=== PATIENT | male | born 1935 | race Caucasian/White ===

== ENCOUNTER → 2019-04-06 07:24 | Outpatient (CLI) | payer MEDICARE, BC, SELFPAY ==
[2019-04-06 08:47] LABS: Add Manual Diff / Slide Review NO; Basophils Absolute Auto 0 /uL (0-100); Basophils Percent Auto 0.6 % (0-2); Eosinophils Absolute Auto 300 /uL (0-450); Eosinophils Percent Auto 4.6 % (2-4); Hematocrit 49.1 % (41-53); Hemoglobin 16.6 g/dL (13.5-17.5); Lymphocytes Absolute Auto 1200 /uL (1100-4500); Lymphocytes Percent Auto 19.2 % (25-40); Mean Corpuscular HGB Conc 33.9 % (30-36); Mean Corpuscular Hemoglobin 33.5 PG (26-34); Mean Corpuscular Volume 98.8 fL (80-100); Monocytes Absolute Auto 600 /uL (0-900); Monocytes Percent Auto 10.1 % (3-14); Neutrophils Absolute Auto 4200 /uL (1500-7000); Neutrophils Percent Auto 65.5 % (50-75); Platelet Count 131 X10^3/uL (150-400); Red Blood Cell Count 4.97 X10^6/uL (4.5-5.9); Red Cell Distribution Width 13.4 % (11.6-14.8); White Blood Cell Count 6.4 X10^3/uL (4.5-11.0)
[2019-04-06 08:58] LABS: Alanine Aminotransferase 70 IU/L (21-72); Albumin 4.2 g/dL (3.5-5.0); Albumin Globulin Ratio 1.2 (1.0-2.8); Alkaline Phosphatase 111 U/L (38-126); Aspartate Aminotransferase 40 IU/L (17-59); BUN Creatinine Ratio 19.1 (6-22); Bilirubin Total 1.2 mg/dL (0.2-1.3); Blood Urea Nitrogen 21 mg/dL (9-20); Calcium 9.2 mg/dL (8.4-10.2); Carbon Dioxide 23 mmol/L (22-32); Chloride 106 mmol/L (98-107); Cholesterol 142 mg/dL (140-199); Estimated Glomerular Filt Rate > 60.0 mL/min (>60); Globulin 3.5 g/dL (1.7-4.1); Glucose 98 mg/dL (80-110); HDL Cholesterol 36 mg/dL (40-60); HEMOLYSIS < 15 (0-50); LDL Cholesterol Calculated 85 mg/dL (<100); Potassium 4.1 mmol/L (3.4-5.1); Sodium 139 mmol/L (137-145); Total Protein 7.7 g/dL (6.3-8.2); Triglycerides 103 mg/dL (35-150)
[2019-04-06 09:24] LABS: Thyroid Stimulating Hormone 1.83 uIU/mL (0.47-4.68)
== END ==
PROVIDERS: Family Provider Internal Medicine Interventional Cardiology; PCP Family Medicine; Visit Provider Family Medicine
DX: E78.2 Mixed hyperlipidemia (principal); I10 Essential (primary) hypertension
CPT/HCPCS: 36415; 80053; 80061; 84443; 85025

== ENCOUNTER 2019-05-21 19:02 | Emergency (ER) | payer MEDICARE, OTHER, SELFPAY ==
[2019-05-21 19:12] VITALS: BP 199/91; PULSE 88; RESP 17; TEMP 36.6; O2SAT 96
--- NOTE | 2019-05-21 19:22 | ED.WEAKNESS ---
HPI - Weakness <Paola Yang PA-C - Last Filed: 05/21/19 21:09> General Chief complaint: Weakness Stated complaint: states high bp Time Seen by Provider: 05/21/19 19:03 Source: patient and family Mode of arrival: Ambulatory Limitations: no limitations History of Present Illness HPI Narrative: This 83-year-old male comes to ED secondary to feeling poorly and noting elevated blood pressure on his home monitor, in the 190s range systolic. He states that he was feeling okay earlier today. This evening sat down to have hot dogs and bread for dinner, felt warm after he started eating and throughout the rest of his dinner (he throughout most of it but did drink a milkshake that his brought home). He states he felt some mild nausea and noted his heart rate seemed somewhat high at 91. He states with that he felt somewhat short of breath for maybe 10-15 minutes. He states that he had a little nausea, no vomiting. He denies having any chest pain. He denies any new pain or swelling in his extremities. He states following this, he had an episode of diarrhea and has not had any subsequently. He states that now he just feels kind of weak in general, denies any focal weakness, however with these symptoms and seeing elevated blood pressure, thought he should come in. He states that he does not frequently check blood pressure at home unless he is not feeling well, however typically 130s range which he thinks it was recently at his doctor's appointment. He has not taken BP medicines today as he takes them at night. He does have history of coronary disease as well as mitral valve replacement. His did not noted any weakness or changes in his speech. Related Data Home Medications Medication Instructions Recorded Confirmed aspirin 81 mg PO QDAY #0 09/20/17 05/21/19 finasteride 5 mg PO QDAY #0 09/20/17 05/21/19 tamsulosin [Flomax] 0.4 mg PO QDAY #0 09/20/17 05/21/19 Previous Rx's Medication Instructions Recorded atorvastatin 20 mg tablet 20 mg PO SEE INSTRUCTIONS #30 tab 04/09/19 lisinopril 20 mg tablet 20 mg PO QDAY #30 tab 04/09/19 metoprolol succinate 25 mg 25 mg PO QDAY #90 tab 04/09/19 tablet,extended release 24 hr pantoprazole 40 mg tablet,delayed 40 mg PO QDAY #30 tab 04/09/19 release Allergies Allergy/AdvReac Type Severity Reaction Status Date / Time No Known Drug Allergies Allergy Verified 05/21/19 19:17 Review of Systems <Paola Yang PA-C - Last Filed: 05/21/19 21:09> Review of Systems ROS Unobtainable: All systems reviewed & are unremarkable except as noted in HPI and below Patient History <Paola Yang PA-C - Last Filed: 05/21/19 21:09> Medical History BPH (benign prostatic hyperplasia) (Acute) Essential hypertension (07/14/04) Mixed hyperlipidemia (12/15/02) 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 HEENT: PERRL, EOMI, normal oropharynx NECK: Supple LUNGS: Clear to auscultation bilaterally, no cough on exam. HEART: Rate and rhythm regular, II/ systolic murmur heard best at the left upper sternal border, normal S1 and S2, no S3 or S4. ABDOMEN: Soft, nontender, nondistended, bowel sounds present x 4 quadrants, no masses palpable, no hepatosplenomegaly. EXTREMITIES: Trace symmetric pitting, no calf tenderness DERMATOLOGIC: No jaundice or exanthem NEUROLOGIC: Alert and oriented with normal speech and coordination. Ambulates normally to the restroom Initial Vital Signs Initial Vital Signs: Vital Signs Temperature 97.8 F 05/21/19 19:12 Pulse Rate 88 05/21/19 19:12 Respiratory Rate 17 05/21/19 19:12 Blood Pressure 199/91 H 05/21/19 19:12 Pulse Oximetry 96 05/21/19 19:12 <Fermin Kumar DO - Last Filed: 05/21/19 23:22> Initial Vital Signs Initial Vital Signs: Vital Signs Temperature 97.8 F 05/21/19 19:12 Pulse Rate 88 05/21/19 19:12 Respiratory Rate 17 05/21/19 19:12 Blood Pressure 199/91 H 05/21/19 19:12 Pulse Oximetry 96 05/21/19 19:12 Course <Paola Yang PA-C - Last Filed: 05/21/19 21:09> Course Additional Information: Blood pressure improved while patient was here prior to being given medications. He has had some mild generalized weakness, no chest pain. He had some faster, regular heart rate and sensation of dyspnea/air hunger for a short time which had resolved well prior to arrival. Symptoms were associated with some nausea and an episode of diarrhea, started while eating. Thus far patient appears comfortable, lab work and studies negative for any acute findings. Plan to repeat troponin at 9:15 which will be 3 hours after symptoms started. Dr. Kumar will review findings and discharge patient if appropriate (findings reviewed) Orders Ordered: ED Orders 05/21/19 19:09 Complete Blood Count AUTO DIFF Stat Comprehensive Metabolic Panel Stat Lipase Stat Magnesium Stat Partial Thromboplastin Time Stat Prothrombin Time INR Stat Troponin & CK Cardiac Panel Stat 05/21/19 19:14 EKG-12 Lead Stat 05/21/19 19:23 XR chest 1V Stat 05/21/19 21:15 Troponin I Stat Discontinued Medications Aspirin (Aspirin Ec) 81 mg PO NOW ONE Stop: 05/21/19 20:30 Last Admin: 05/21/19 20:34 Dose: 81 mg Documented by: MALAFARL Lisinopril (Zestril) 20 mg PO NOW ONE Stop: 05/21/19 20:24 Last Admin: 05/21/19 20:34 Dose: 20 mg Documented by: VIANEY Metoprolol Succinate (Toprol Xl) 25 mg PO NOW ONE Stop: 05/21/19 20:24 Last Admin: 05/21/19 20:34 Dose: 25 mg Documented by: VIANEY Vital Signs Vital signs: Vital Signs - 8 hr 05/21/19 19:12 05/21/19 20:39 05/21/19 21:00 Temperature 97.8 F Pulse Rate 88 78 67 Respiratory Rate 17 21 18 Blood Pressure 199/91 H Blood Pressure [Right Arm] 167/78 H 165/82 H Pulse Oximetry 96 96 96 05/21/19 21:32 05/21/19 22:05 05/21/19 22:06 Temperature Pulse Rate 69 93 H 72 Respiratory Rate 15 22 Blood Pressure 162/84 H 162/76 H Blood Pressure [Right Arm] 157/83 H Pulse Oximetry 95 97 <Fermin Kumar DO - Last Filed: 05/21/19 23:22> Orders Ordered: ED Orders 05/21/19 19:09 Complete Blood Count AUTO DIFF Stat Comprehensive Metabolic Panel Stat Lipase Stat Magnesium Stat Partial Thromboplastin Time Stat Prothrombin Time INR Stat Troponin & CK Cardiac Panel Stat 05/21/19 19:14 EKG-12 Lead Stat 05/21/19 19:23 XR chest 1V Stat 05/21/19 21:15 Troponin I Stat Discontinued Medications Aspirin (Aspirin Ec) 81 mg PO NOW ONE Stop: 05/21/19 20:30 Last Admin: 05/21/19 20:34 Dose: 81 mg Documented by: VIANEY Lisinopril (Zestril) 20 mg PO NOW ONE Stop: 05/21/19 20:24 Last Admin: 05/21/19 20:34 Dose: 20 mg Documented by: VIANEY Metoprolol Succinate (Toprol Xl) 25 mg PO NOW ONE Stop: 05/21/19 20:24 Last Admin: 05/21/19 20:34 Dose: 25 mg Documented by: VIANEY Vital Signs Vital signs: Vital Signs - 8 hr 05/21/19 19:12 05/21/19 20:39 05/21/19 21:00 Temperature 97.8 F Pulse Rate 88 78 67 Respiratory Rate 17 21 18 Blood Pressure 199/91 H Blood Pressure [Right Arm] 167/78 H 165/82 H Pulse Oximetry 96 96 96 05/21/19 21:32 05/21/19 22:05 05/21/19 22:06 Temperature Pulse Rate 69 93 H 72 Respiratory Rate 15 22 Blood Pressure 162/84 H 162/76 H Blood Pressure [Right Arm] 157/83 H Pulse Oximetry 95 97 [facility] - Weakness <Paola Yang PA-C - Last Filed: 05/21/19 21:09> Lab Data Attestation: I reviewed the patient's lab results. Result diagrams: 05/21/19 19:09 05/21/19 19:09 Labs: Lab Results 05/21/19 05/21/19 05/21/19 Range/Units 19:09 19:09 19:09 WBC 7.7 (4.5-11.0) X10^3/uL RBC 4.93 (4.5-5.9) X10^6/uL Hgb 16.7 (13.5-17.5) g/dL Hct 48.3 (41-53) % MCV 97.8 (80-100) fL MCH 33.9 (26-34) PG MCHC 34.6 (30-36) % RDW 13.6 (11.6-14.8) % Plt Count 143 L (150-400) X10^3/uL Neut % (Auto) 59.3 (50-75) % Lymph % (Auto) 25.0 (25-40) % Patrick % (Auto) 10.4 (3-14) % Eos % (Auto) 4.4 H (2-4) % Baso % (Auto) 0.9 (0-2) % Neut # (Auto) 4500 (4213-6128) /uL Lymph # (Auto) 1900 (8289-1362) /uL Patrick # (Auto) 800 (0-900) /uL Eos # (Auto) 300 (0-450) /uL Baso # (Auto) 100 (0-100) /uL PT 12.4 (10.1-12.7) SECONDS INR 1.1 (0.9-1.3) APTT 33 (26.4-36.2) SECONDS Sodium 140 (137-145) mmol/L Potassium 3.8 (3.4-5.1) mmol/L Chloride 105 (98-107) mmol/L Carbon Dioxide 26 (22-32) mmol/L BUN 20 (9-20) mg/dL Creatinine 1.20 (0.66-1.25) mg/dL Estimated GFR 57.8 L (>60) mL/min BUN/Creatinine Ratio 16.7 (6-22) Glucose 81 (80-110) mg/dL Calcium 9.5 (8.4-10.2) mg/dL Magnesium (1.6-2.3) mg/dL Total Bilirubin 0.6 (0.2-1.3) mg/dL AST 33 (17-59) IU/L ALT 21 (<50) IU/L Alkaline Phosphatase 95 (38-126) U/L Total Creatine Kinase 140 (55-170) U/L CK-MB (CK-2) 5.24 H (<2.37) ng/mL CK-MB (CK-2) Rel Index 3.7 (1.5-5.0) % Troponin I < 0.012 (0.01-0.034) ng/mL Total Protein 7.7 (6.3-8.2) g/dL Albumin 4.4 (3.5-5.0) g/dL Globulin 3.3 (1.7-4.1) g/dL Albumin/Globulin Ratio 1.3 (1.0-2.8) Lipase (23-300) U/L 05/21/19 05/21/19 Range/Units 19:09 21:15 WBC (4.5-11.0) X10^3/uL RBC (4.5-5.9) X10^6/uL Hgb (13.5-17.5) g/dL Hct (41-53) % MCV (80-100) fL MCH (26-34) PG MCHC (30-36) % RDW (11.6-14.8) % Plt Count (150-400) X10^3/uL Neut % (Auto) (50-75) % Lymph % (Auto) (25-40) % Patrick % (Auto) (3-14) % Eos % (Auto) (2-4) % Baso % (Auto) (0-2) % Neut # (Auto) (4920-3039) /uL Lymph # (Auto) (2487-6207) /uL Patrick # (Auto) (0-900) /uL Eos # (Auto) (0-450) /uL Baso # (Auto) (0-100) /uL PT (10.1-12.7) SECONDS INR (0.9-1.3) APTT (26.4-36.2) SECONDS Sodium (137-145) mmol/L Potassium (3.4-5.1) mmol/L Chloride (98-107) mmol/L Carbon Dioxide (22-32) mmol/L BUN (9-20) mg/dL Creatinine (0.66-1.25) mg/dL Estimated GFR (>60) mL/min BUN/Creatinine Ratio (6-22) Glucose (80-110) mg/dL Calcium (8.4-10.2) mg/dL Magnesium 1.8 (1.6-2.3) mg/dL Total Bilirubin (0.2-1.3) mg/dL AST (17-59) IU/L ALT (<50) IU/L Alkaline Phosphatase (38-126) U/L Total Creatine Kinase (55-170) U/L CK-MB (CK-2) (<2.37) ng/mL CK-MB (CK-2) Rel Index (1.5-5.0) % Troponin I 0.013 (0.01-0.034) ng/mL Total Protein (6.3-8.2) g/dL Albumin (3.5-5.0) g/dL Globulin (1.7-4.1) g/dL Albumin/Globulin Ratio (1.0-2.8) Lipase 94 (23-300) U/L Urine Dip Bedside Urine Glucose Negative Bedside Urine Bilirubin - Negative Bedside Urine Ketone - Negative Urine Specific [place] 1.015 Bedside Urine Occult Blood - Negative Bedside Urine pH 6.0 Bedside Urine Protein - Negative Bedside Urine Urobilinogen - Negative Bedside Urine Nitrite - Negative Bedside Urine Leukocytes - Negative Esterase Imaging Data Chest x-ray: Radiologist's impression: [address] [address] XRay Report Signed Patient: Venkat Hernandez EMR#: [id number] : 6Acct:[id number] Age/Sex: 83 / MDate of Service: 05/21/19 Loc: ED Accession Number: [id number] Procedure: XR chest 1V Ordering Provider: Paola Yang P.A-C PROCEDURE: XR CHEST 1V INDICATIONS: chest pain TECHNIQUE: One view of the chest was acquired. COMPARISON: [facility], , CHEST 2 VIEW, 07/24/2010, 15:09. FINDINGS: Surgical changes and devices: Sternotomy wires, presumed prior CABG or cardiac valve replacement. Lungs and pleura: Lungs are abnormal with a chronic interstitial prominence, perhaps reflecting prior smoking history. No pleural effusions or pneumothorax but there is focal pleural thickening at the lateral left lung base, potentially a manifestation of a pleural mass in that area, measuring only approximately 2.5 cm craniocaudad and 1.5 cm in width. This was not previously present on chest plain film imaging from 2010.. Mediastinum: Mediastinal contours appear normal except for what appears to be a moderate-sized hiatal hernia behind the heart. Heart size is at the upper limits of normal. Bones and chest wall: No suspicious bony lesions. Overlying soft tissues appear unremarkable. IMPRESSION: Prior CABG or cardiac valve replacement. Possible pleural mass lateral left lung base. Followup PA and lateral chest plain film with specific attention to this area is recommended in several days when deep inspiratory effort is possible. Interstitial prominence, suspect prior smoking history. Moderate-sized hiatal hernia behind the heart. Heart size at upper limits of normal but not indicating definite CHF. Dictated by: Hank Fair M.D. on 05/21/2019 at 20:55 Approved by: Hank Fair M.D. on 05/21/2019 at 20:57 ECG Data Attestation: I personally reviewed and interpreted this ECG as follows: (Normal sinus rhythm, rate 84, no acute ST changes compared to 2010, borderline LAD) Prior ECG tracings: available for review <Fermin Kumar DO - Last Filed: 05/21/19 23:22> Lab Data Attestation: I reviewed the patient's lab results. Labs: Lab Results 05/21/19 05/21/19 05/21/19 Range/Units 19:09 19:09 19:09 WBC 7.7 (4.5-11.0) X10^3/uL RBC 4.93 (4.5-5.9) X10^6/uL Hgb 16.7 (13.5-17.5) g/dL Hct 48.3 (41-53) % MCV 97.8 (80-100) fL MCH 33.9 (26-34) PG MCHC 34.6 (30-36) % RDW 13.6 (11.6-14.8) % Plt Count 143 L (150-400) X10^3/uL Neut % (Auto) 59.3 (50-75) % Lymph % (Auto) 25.0 (25-40) % Patrick % (Auto) 10.4 (3-14) % Eos % (Auto) 4.4 H (2-4) % Baso % (Auto) 0.9 (0-2) % Neut # (Auto) 4500 (6286-4785) /uL Lymph # (Auto) 1900 (9330-6239) /uL Patrick # (Auto) 800 (0-900) /uL Eos # (Auto) 300 (0-450) /uL Baso # (Auto) 100 (0-100) /uL PT 12.4 (10.1-12.7) SECONDS INR 1.1 (0.9-1.3) APTT 33 (26.4-36.2) SECONDS Sodium 140 (137-145) mmol/L Potassium 3.8 (3.4-5.1) mmol/L Chloride 105 (98-107) mmol/L Carbon Dioxide 26 (22-32) mmol/L BUN 20 (9-20) mg/dL Creatinine 1.20 (0.66-1.25) mg/dL Estimated GFR 57.8 L (>60) mL/min BUN/Creatinine Ratio 16.7 (6-22) Glucose 81 (80-110) mg/dL Calcium 9.5 (8.4-10.2) mg/dL Magnesium (1.6-2.3) mg/dL Total Bilirubin 0.6 (0.2-1.3) mg/dL AST 33 (17-59) IU/L ALT 21 (<50) IU/L Alkaline Phosphatase 95 (38-126) U/L Total Creatine Kinase 140 (55-170) U/L CK-MB (CK-2) 5.24 H (<2.37) ng/mL CK-MB (CK-2) Rel Index 3.7 (1.5-5.0) % Troponin I < 0.012 (0.01-0.034) ng/mL Total Protein 7.7 (6.3-8.2) g/dL Albumin 4.4 (3.5-5.0) g/dL Globulin 3.3 (1.7-4.1) g/dL Albumin/Globulin Ratio 1.3 (1.0-2.8) Lipase (23-300) U/L 05/21/19 05/21/19 Range/Units 19:09 21:15 WBC (4.5-11.0) X10^3/uL RBC (4.5-5.9) X10^6/uL Hgb (13.5-17.5) g/dL Hct (41-53) % MCV (80-100) fL MCH (26-34) PG MCHC (30-36) % RDW (11.6-14.8) % Plt Count (150-400) X10^3/uL Neut % (Auto) (50-75) % Lymph % (Auto) (25-40) % Patrick % (Auto) (3-14) % Eos % (Auto) (2-4) % Baso % (Auto) (0-2) % Neut # (Auto) (5926-4285) /uL Lymph # (Auto) (6932-6257) /uL Patrick # (Auto) (0-900) /uL Eos # (Auto) (0-450) /uL Baso # (Auto) (0-100) /uL PT (10.1-12.7) SECONDS INR (0.9-1.3) APTT (26.4-36.2) SECONDS Sodium (137-145) mmol/L Potassium (3.4-5.1) mmol/L Chloride (98-107) mmol/L Carbon Dioxide (22-32) mmol/L BUN (9-20) mg/dL Creatinine (0.66-1.25) mg/dL Estimated GFR (>60) mL/min BUN/Creatinine Ratio (6-22) Glucose (80-110) mg/dL Calcium (8.4-10.2) mg/dL Magnesium 1.8 (1.6-2.3) mg/dL Total Bilirubin (0.2-1.3) mg/dL AST (17-59) IU/L ALT (<50) IU/L Alkaline Phosphatase (38-126) U/L Total Creatine Kinase (55-170) U/L CK-MB (CK-2) (<2.37) ng/mL CK-MB (CK-2) Rel Index (1.5-5.0) % Troponin I 0.013 (0.01-0.034) ng/mL Total Protein (6.3-8.2) g/dL Albumin (3.5-5.0) g/dL Globulin (1.7-4.1) g/dL Albumin/Globulin Ratio (1.0-2.8) Lipase 94 (23-300) U/L Urine Dip Bedside Urine Glucose Negative Bedside Urine Bilirubin - Negative Bedside Urine Ketone - Negative Urine Specific [place] 1.015 Bedside Urine Occult Blood - Negative Bedside Urine pH 6.0 Bedside Urine Protein - Negative Bedside Urine Urobilinogen - Negative Bedside Urine Nitrite - Negative Bedside Urine Leukocytes - Negative Esterase Imaging Data Chest x-ray: Radiologist's impression: [address] [address] XRay Report Signed Patient: Venkat Hernandez EMR#: [id number] : 6Acct:[id number] Age/Sex: 83 / MDate of Service: 05/21/19 Loc: ED Accession Number: [id number] Procedure: XR chest 1V Ordering Provider: Paola Yang P.A-C PROCEDURE: XR CHEST 1V INDICATIONS: chest pain TECHNIQUE: One view of the chest was acquired. COMPARISON: [facility], , CHEST 2 VIEW, 07/24/2010, 15:09. FINDINGS: Surgical changes and devices: Sternotomy wires, presumed prior CABG or cardiac valve replacement. Lungs and pleura: Lungs are abnormal with a chronic interstitial prominence, perhaps reflecting prior smoking history. No pleural effusions or pneumothorax but there is focal pleural thickening at the lateral left lung base, potentially a manifestation of a pleural mass in that area, measuring only approximately 2.5 cm craniocaudad and 1.5 cm in width. This was not previously present on chest plain film imaging from 2010.. Mediastinum: Mediastinal contours appear normal except for what appears to be a moderate-sized hiatal hernia behind the heart. Heart size is at the upper limits of normal. Bones and chest wall: No suspicious bony lesions. Overlying soft tissues appear unremarkable. IMPRESSION: Prior CABG or cardiac valve replacement. Possible pleural mass lateral left lung base. Followup PA and lateral chest plain film with specific attention to this area is recommended in several days when deep inspiratory effort is possible. Interstitial prominence, suspect prior smoking history. Moderate-sized hiatal hernia behind the heart. Heart size at upper limits of normal but not indicating definite CHF. Dictated by: Hank Fair M.D. on 05/21/2019 at 20:55 Approved by: Hank Fair M.D. on 05/21/2019 at 20:57 [facility] Narrative Medical decision making narrative: Received turned over from day provider. Patient's blood pressure improved after received his night medications. Second troponin was negative. Patient never to had any chest pain. He states that he feels ?normal? now. I did discuss with him the findings on his chest x-ray. His is at bedside for these discussions. Informed him that he should talk with his primary provider regarding this. Feel like we can hold on further workup for now. Symptoms not consistent with ACS. Not consistent with other cardiac etiology. Informed patient of return precautions and follow-up instructions. He expressed understanding and agreement plan. Discharge Plan Departure Patient Disposition: Home Clinical Impression: Hypertension Discharge Date/Time: 05/21/19 22:08 Instructions: Essential Hypertension Activity Restrictions/Additional Instructions: I recommend that you continue all of your medications as directed. Tomorrow contact your primary provider for follow-up to discuss the symptoms that brought you into the emergency department today and also the findings on the chest x-ray today. Return to the emergency department for any new or worsening symptoms Prescriptions: No Action atorvastatin [Lipitor] 20 mg tablet 20 mg PO SEE INSTRUCTIONS Qty: 30 RF: 11 lisinopril [Prinivil] 20 mg tablet 20 mg PO QDAY Qty: 30 RF: 11 metoprolol succinate [Toprol XL] 25 mg tablet extended release 24 hr 25 mg PO QDAY Qty: 90 RF: 3 pantoprazole [Protonix] 40 mg tablet,delayed release (DR/EC) 40 mg PO QDAY Qty: 30 RF: 11 aspirin 81 MG tablet,delayed release (DR/EC) 81 mg PO QDAY Qty: 0 RF: 0 tamsulosin [Flomax] 0.4 MG capsule,extended release 24hr 0.4 mg PO QDAY Qty: 0 RF: 0 finasteride 5 MG tablet 5 mg PO QDAY Qty: 0 RF: 0 Referrals: Gavin Jiang MD [Primary Care Provider] -
[2019-05-21 19:30] LABS: Add Manual Diff / Slide Review NO; Basophils Absolute Auto 100 /uL (0-100); Basophils Percent Auto 0.9 % (0-2); Eosinophils Absolute Auto 300 /uL (0-450); Eosinophils Percent Auto 4.4 % (2-4); Hematocrit 48.3 % (41-53); Hemoglobin 16.7 g/dL (13.5-17.5); Lymphocytes Absolute Auto 1900 /uL (1100-4500); Mean Corpuscular HGB Conc 34.6 % (30-36); Mean Corpuscular Hemoglobin 33.9 PG (26-34); Mean Corpuscular Volume 97.8 fL (80-100); Monocytes Absolute Auto 800 /uL (0-900); Monocytes Percent Auto 10.4 % (3-14); Neutrophils Absolute Auto 4500 /uL (1500-7000); Neutrophils Percent Auto 59.3 % (50-75); Platelet Count 143 X10^3/uL (150-400); Red Blood Cell Count 4.93 X10^6/uL (4.5-5.9); Red Cell Distribution Width 13.6 % (11.6-14.8); White Blood Cell Count 7.7 X10^3/uL (4.5-11.0)
[2019-05-21 19:34] LABS: INR 1.1 (0.9-1.3); Prothrombin Time 12.4 SECONDS (10.1-12.7)
[2019-05-21 19:37] LABS: PTT Partial Thromboplastin Tim 33 SECONDS (26.4-36.2)
[2019-05-21 19:40] LABS: Alanine Aminotransferase 21 IU/L (<50); Albumin 4.4 g/dL (3.5-5.0); Albumin Globulin Ratio 1.3 (1.0-2.8); Alkaline Phosphatase 95 U/L (38-126); Aspartate Aminotransferase 33 IU/L (17-59); BUN Creatinine Ratio 16.7 (6-22); Bilirubin Total 0.6 mg/dL (0.2-1.3); Blood Urea Nitrogen 20 mg/dL (9-20); Calcium 9.5 mg/dL (8.4-10.2); Carbon Dioxide 26 mmol/L (22-32); Chloride 105 mmol/L (98-107); Creatine Kinase 140 U/L (55-170); Estimated Glomerular Filt Rate 57.8 mL/min (>60); Globulin 3.3 g/dL (1.7-4.1); Glucose 81 mg/dL (80-110); Potassium 3.8 mmol/L (3.4-5.1); Sodium 140 mmol/L (137-145); Total Protein 7.7 g/dL (6.3-8.2)
[2019-05-21 19:52] LABS: Troponin I < 0.012 ng/mL (0.01-0.034)
[2019-05-21 19:55] LABS: CKMB % Relative Index 3.7 % (1.5-5.0); Creatine Kinase MB 5.24 ng/mL (<2.37); HEMOLYSIS 63 (0-50)
[2019-05-21 19:56] LABS: Lipase 94 U/L (23-300); Magnesium 1.8 mg/dL (1.6-2.3)
[2019-05-21] MEDS: METOPROLOL ER 25 MG TABLET PO (20:34)
[2019-05-21] MEDS: LISINOPRIL 20 MG TABLET PO (20:34)
[2019-05-21] MEDS: ASPIRIN EC 81 MG TABLET PO (20:34)
[2019-05-21 20:39] VITALS: BP 167/78; PULSE 78; RESP 21; O2SAT 96
[2019-05-21 21:00] VITALS: BP 165/82; PULSE 67; RESP 18; O2SAT 96
--- NOTE | 2019-05-21 21:29 | PC.NURSE ---
Patient states generalized weakness that began this evening, felt warm and had an episode of loose stool. Pt checked his BP, it was high at >200 systolic and came to ED. Denies chest pain. Had not taken his evening BP of lisinopril and metoprolol before arriving to ED. States a history of CABG >5 years ago and TAVR in 2014. at bedside.
[2019-05-21 21:32] VITALS: BP 157/83; PULSE 69; RESP 15; O2SAT 95
[2019-05-21 21:51] LABS: Troponin I 0.013 ng/mL (0.01-0.034)
[2019-05-21 22:05] VITALS: BP 162/84; PULSE 93
[2019-05-21 22:06] VITALS: BP 162/76; PULSE 72; RESP 22; O2SAT 97
== END 2019-05-21 22:08 | disposition home or self-care (01) ==
PROVIDERS: Emergency Provider Internal Medicine; Family Provider Internal Medicine Interventional Cardiology; PCP Family Medicine
DX: I10 Essential (primary) hypertension (principal); R07.9 Chest pain, unspecified; E78.2 Mixed hyperlipidemia
CPT/HCPCS: 36415; 71045; 80053; 81003; 82550; 82553; 83690; 83735; 84484; 85025; 85610; 85730; 93005; 99283; 99285

== ENCOUNTER → 2019-06-02 09:50 | Outpatient (CLI) | payer MEDICARE, OTHER, SELFPAY ==
--- NOTE | 2019-06-02 09:52 | DI.RAD.S_ITS ---
PROCEDURE: XR CHEST 2V INDICATIONS: ?pleural mass L Lung base TECHNIQUE: 2 views of the chest were acquired. COMPARISON: [facility], RG, XR CXR 2 VIEW, 07/19/2004, 10:25. [facility], CR, XR CHEST 1V, 05/21/2019, 19:26. [facility], CR, CHEST 2 VIEW, 07/24/2010, 15:09. FINDINGS: Surgical changes and devices: Sternotomy wires, presumed prior CABG or heart valve replacement. An expandable annular prosthesis is present at the aortic valve region. Lungs and pleura: Lungs are stable with a mild chronic interstitial prominence. No pleural effusions or pneumothorax. Mediastinum: Mediastinal contours are normal. Heart size is normal. Bones and chest wall: No suspicious bony abnormalities. Soft tissues appear unremarkable. IMPRESSION: Stable mild chronic interstitial prominence, sternotomy wires, prior CABG. Aortic valve prosthesis expandable annulus fixation device noted. The focal pleural thickening previously identified at the lateral left lung base can be faintly visualized, but is less evident. This might represent sequela of the operative intervention. Followup chest plain film attention to that site in 3-6 months is recommended. Dictated by: Hank Fair M.D. on 06/02/2019 at 11:07 Approved by: Hank Fair M.D. on 06/02/2019 at 11:09
== END ==
PROVIDERS: Family Provider Internal Medicine Interventional Cardiology; PCP Family Medicine; Visit Provider Family Medicine
DX: R91.8 Other nonspecific abnormal finding of lung field (principal); Z95.1 Presence of aortocoronary bypass graft; Z95.2 Presence of prosthetic heart valve
CPT/HCPCS: 71046

== ENCOUNTER → 2020-02-10 09:13 | Outpatient (CLI) | payer MEDICARE, OTHER, SELFPAY ==
--- NOTE | 2020-02-10 09:14 | DI.RAD.S_ITS ---
PROCEDURE: XR CHEST 2V INDICATIONS: 6 mo fu pleural mass Left lung base TECHNIQUE: 2 views of the chest were acquired. COMPARISON: [facility], CR, XR CHEST 2V, 06/02/2019, 9:58. FINDINGS: Surgical changes and devices: Patient is status post median sternotomy and valvular replacement Lungs and pleura: Lungs are clear. No pleural effusions or pneumothorax. Mediastinum: Mediastinal contours are normal. Heart size is normal. Bones and chest wall: No suspicious bony abnormalities. Soft tissues appear unremarkable. IMPRESSION: No acute cardiopulmonary findings. Dictated by: Lizzie Castanon M.D. on 02/10/2020 at 10:33 Approved by: Lizzie Castanon M.D. on 02/10/2020 at 10:34
== END ==
PROVIDERS: Family Provider Internal Medicine Interventional Cardiology; PCP Family Medicine; Referring Provider Family Medicine; Visit Provider Family Medicine
DX: J94.8 Other specified pleural conditions (principal)
CPT/HCPCS: 71046

== ENCOUNTER → 2020-02-22 08:55 | Outpatient (CLI) | payer MEDICARE, OTHER, SELFPAY ==
--- NOTE | 2020-02-22 | DI.US.S_ITS ---
PROCEDURE: US RENAL COMPLETE INDICATIONS: Feeling of incomplete bladder emptying TECHNIQUE: Real-time scanning was performed of the kidneys and bladder, with image documentation. COMPARISON: None. FINDINGS: Kidneys: Kidneys are normal in size. Right kidney measures 10 cm long; left kidney measures 11.4 cm long. Right renal cortical thickness is 1.1 cm; left renal cortical thickness is 1.4 cm. Renal cortical echotexture is normal. No hydronephrosis or nephrolithiasis. No suspicious solid mass lesions. Bilateral simple appearing renal cysts are seen. The largest on the right is seen inferiorly measuring up to 2.8 centimeters. The largest on the left is seen within the mid kidney measuring 1.1 centimeters. Bladder: Pre-void bladder volume is 165 mL. Post-void residual is 107 mL. Pre-void images demonstrate no intraluminal masses or stones. On pre-void images, neither of the ureteral jets are noted with color Doppler interrogation. (Of note, ureteral jets may not be detectable in up to 25% of cases due to insufficient differences in specific gravity between ureteral and bladder urine). Miscellaneous: No free pelvic fluid. An enlarged prostate is seen, which measures 6 centimeters on this study. IMPRESSION: Moderate postvoid residual, 107 cubic centimeters. Enlarged prostate. Normal-appearing kidneys, with exception of simple appearing renal cysts. There is no hydronephrosis. Dictated by: Agutsin Hemphill M.D. on 02/22/2020 at 10:43 Approved by: Agustin Hemphill M.D. on 02/22/2020 at 10:46
[2020-02-22 09:31] LABS: Estimated Glomerular Filt Rate > 60.0 mL/min (>60)
== END ==
PROVIDERS: Family Provider Internal Medicine Interventional Cardiology; PCP Family Medicine; Referring Provider Urology; Visit Provider Urology
DX: N40.1 Benign prostatic hyperplasia with lower urinary tract symptoms (principal); R39.14 Feeling of incomplete bladder emptying
CPT/HCPCS: 36415; 76770; 82565

== ENCOUNTER → 2020-08-23 14:07 | Outpatient (CLI) | payer MEDICARE, OTHER, SELFPAY ==
--- NOTE | 2020-08-23 14:11 | DI.US.S_ITS ---
PROCEDURE: US PERIPH VENOUS LOW EXTREM LT INDICATIONS: RIGHT LEG SWELLING. RULE OUT DEEP VEIN THROMBOSIS TECHNIQUE: Real-time imaging, as well as color and pulse Doppler interrogation, were performed of the lower extremity deep veins from the inguinal ligament to the popliteal fossa. COMPARISON: None. FINDINGS: The common femoral, femoral and popliteal veins are normally compressible, and free of intraluminal thrombus. Color and pulse Doppler demonstrate normal phasic intraluminal flow. There is normal augmentation response to distal compression maneuver. IMPRESSION: No deep venous thrombosis. Dictated by: Sara Warren M.D. on 08/23/2020 at 13:47 Approved by: Sara Warren M.D. on 08/23/2020 at 13:48
== END ==
PROVIDERS: Family Provider Internal Medicine Interventional Cardiology; PCP Family Medicine; Referring Provider Nurse Practitioner; Visit Provider Nurse Practitioner
DX: M79.89 Other specified soft tissue disorders; M79.605 Pain in left leg
CPT/HCPCS: 93971

== ENCOUNTER → 2020-08-24 10:06 | Outpatient (CLI) | payer MEDICARE, OTHER, SELFPAY ==
--- NOTE | 2020-08-24 10:08 | DI.RAD.S_ITS ---
PROCEDURE: XR ANKLE LT MIN 3V INDICATIONS: L ankle pain and swelling TECHNIQUE: 3 views of the ankle were acquired. COMPARISON: None. FINDINGS: Bones: No fractures or dislocations. Ankle mortise is normally aligned. No suspicious bony lesions. Tibiotalar joint degeneration and spurring. Plantar calcaneal spur. Subchondral lucency involving the medial talar dome. Soft tissues: No tibiotalar joint effusion. Achilles tendon appears normal. IMPRESSION: Tibiotalar joint degeneration, and subchondral lucency involving the medial subtalar dome, raising the possibility of osteochondral defect although this could be better evaluated with dedicated ankle MRI as clinically necessary. Dictated by: Charles Howell M.D. on 08/24/2020 at 10:30 Approved by: Charles Howell M.D. on 08/24/2020 at 10:36
== END ==
PROVIDERS: Family Provider Internal Medicine Interventional Cardiology; PCP Family Medicine; Referring Provider Nurse Practitioner; Visit Provider Nurse Practitioner
DX: M19.072 Primary osteoarthritis, left ankle and foot (principal)
CPT/HCPCS: 73610

== ENCOUNTER → 2020-09-21 09:58 | Outpatient (CLI) | payer MEDICARE, OTHER, SELFPAY ==
[2020-09-21 10:12] LABS: Bacteria Urine None Seen; RBC Urine None Seen (0-5/HPF); WBC Urine None Seen (0-5/HPF)
[2020-09-21 10:44] LABS: Add Manual Diff / Slide Review NO; Basophils Absolute Auto 100 /uL (0-100); Eosinophils Absolute Auto 200 /uL (0-450); Hematocrit 45.3 % (41-53); Hemoglobin 15.4 g/dL (13.5-17.5); Lymphocytes Absolute Auto 1300 /uL (1100-4500); Lymphocytes Percent Auto 22.6 % (25-40); Mean Corpuscular Hemoglobin 32.8 PG (26-34); Mean Corpuscular Volume 96.6 fL (80-100); Monocytes Absolute Auto 600 /uL (0-900); Monocytes Percent Auto 10.6 % (3-14); Neutrophils Absolute Auto 3600 /uL (1500-7000); Neutrophils Percent Auto 62.8 % (50-75); Platelet Count 125 X10^3/uL (150-400); Red Blood Cell Count 4.69 X10^6/uL (4.5-5.9); Red Cell Distribution Width 13.5 % (11.6-14.8); White Blood Cell Count 5.8 X10^3/uL (4.5-11.0)
[2020-09-21 10:57] LABS: Alanine Aminotransferase 18 IU/L (<50); Albumin Globulin Ratio 1.4 (1.0-2.8); Alkaline Phosphatase 112 U/L (38-126); Aspartate Aminotransferase 24 IU/L (17-59); Bilirubin Total 0.7 mg/dL (0.2-1.3); Blood Urea Nitrogen 16 mg/dL (9-20); Calcium 9.6 mg/dL (8.4-10.2); Carbon Dioxide 22 mmol/L (22-32); Chloride 107 mmol/L (98-107); Cholesterol 162 mg/dL (140-199); Estimated Glomerular Filt Rate > 60.0 mL/min (>60); Globulin 2.8 g/dL (1.7-4.1); Glucose 92 mg/dL (80-110); HDL Cholesterol 43 mg/dL (40-60); HEMOLYSIS < 15 (0-50); LDL Cholesterol Calculated 100 mg/dL (<100); Potassium 4.4 mmol/L (3.4-5.1); Sodium 138 mmol/L (137-145); Total Protein 6.8 g/dL (6.3-8.2); Triglycerides 93 mg/dL (35-150)
[2020-09-21 11:15] LABS: Appearance Urine UA CLEAR; Bilirubin Urine UA NEGATIVE (NEGATIVE); Color Urine UA YELLOW; Glucose Urine UA NEGATIVE (Negative); Ketones Urine UA NEGATIVE (NEGATIVE); Leukocyte Esterase Urine UA NEGATIVE (NEGATIVE); Nitrite Urine UA NEGATIVE (Negative); Occult Blood Urine UA NEGATIVE (Negative); Protein Urine UA NEGATIVE (Negative); Urobilinogen Urine UA 0.2 E.U./dL (0.2)
[2020-09-21 11:17] LABS: Culture Indicated Urine Cult Not Indicated; Urine Comments Microscopic Normal
[2020-09-21 11:28] LABS: TSH w/ Reflex to FT4 1.75 uIU/mL (0.47-4.68)
== END ==
PROVIDERS: Family Provider Internal Medicine Interventional Cardiology; PCP Family Medicine; Referring Provider Family Medicine; Visit Provider Family Medicine
DX: E78.2 Mixed hyperlipidemia (principal); I10 Essential (primary) hypertension; N40.0 Benign prostatic hyperplasia without lower urinary tract symptoms; Z95.1 Presence of aortocoronary bypass graft
CPT/HCPCS: 36415; 80053; 80061; 81001; 84443; 85025

== ENCOUNTER → 2020-12-22 15:47 | Outpatient (CLI) | payer MEDICARE, BC, SELFPAY ==
[2020-12-22 16:12] LABS: Add Manual Diff / Slide Review NO; Basophils Absolute Auto 100 /uL (0-100); Basophils Percent Auto 0.8 % (0-2); Eosinophils Absolute Auto 200 /uL (0-450); Eosinophils Percent Auto 2.1 % (2-4); Hematocrit 43.9 % (41-53); Hemoglobin 14.8 g/dL (13.5-17.5); Lymphocytes Absolute Auto 1500 /uL (1100-4500); Lymphocytes Percent Auto 18.7 % (25-40); Mean Corpuscular HGB Conc 33.8 % (30-36); Mean Corpuscular Hemoglobin 32.6 PG (26-34); Mean Corpuscular Volume 96.7 fL (80-100); Monocytes Absolute Auto 500 /uL (0-900); Monocytes Percent Auto 6.5 % (3-14); Neutrophils Absolute Auto 5800 /uL (1500-7000); Neutrophils Percent Auto 71.9 % (50-75); Platelet Count 163 X10^3/uL (150-400); Red Blood Cell Count 4.54 X10^6/uL (4.5-5.9); Red Cell Distribution Width 13.3 % (11.6-14.8)
[2020-12-22 16:25] LABS: Alanine Aminotransferase 53 IU/L (<50); Albumin 3.7 g/dL (3.5-5.0); Albumin Globulin Ratio 1.2 (1.0-2.8); Alkaline Phosphatase 104 U/L (38-126); Aspartate Aminotransferase 26 IU/L (17-59); BUN Creatinine Ratio 19.1 (6-22); Bilirubin Total 0.5 mg/dL (0.2-1.3); Blood Urea Nitrogen 18 mg/dL (9-20); Calcium 9.1 mg/dL (8.4-10.2); Carbon Dioxide 22 mmol/L (22-32); Chloride 110 mmol/L (98-107); Estimated Glomerular Filt Rate > 60.0 mL/min (>60); Glucose 97 mg/dL (80-110); HEMOLYSIS < 15 (0-50); Lipase 76 U/L (23-300); Potassium 4.6 mmol/L (3.4-5.1); Sodium 139 mmol/L (137-145); Total Protein 6.7 g/dL (6.3-8.2)
== END ==
PROVIDERS: Family Provider Internal Medicine Interventional Cardiology; PCP Family Medicine; Referring Provider Family Medicine; Visit Provider Family Medicine
DX: R10.11 Right upper quadrant pain (principal); R63.4 Abnormal weight loss
CPT/HCPCS: 36415; 80053; 83690; 85025

== ENCOUNTER → 2021-01-03 12:49 | Outpatient (CLI) | payer MEDICARE, BC, SELFPAY ==
--- NOTE | 2021-01-03 12:50 | DI.CT.S_ITS ---
PROCEDURE: CT ABDOMEN PELVIS W CON INDICATIONS: weight loss, ruq abd pain TECHNIQUE: After the administration of intravenous contrast, axial sections acquired from the lung bases to the pubic symphysis. Coronal and sagittal reformats were performed. For radiation dose reduction, the following was used: automated exposure control, adjustment of mA and/or kV according to patient size. COMPARISON: None. FINDINGS: Image quality: Excellent. Lung bases: Unremarkable. Heart: No significant findings. ABDOMEN: Liver: Unremarkable. Gallbladder: The gallbladder contains a mixture of sludge and stones layering dependently within the gallbladder lumen but there is no sign of acute cholecystitis or biliary obstruction. Biliary ducts: Unremarkable. Pancreas: Unremarkable. Spleen: Unremarkable. Adrenal Glands: Unremarkable. Kidneys and Ureters: Unremarkable. Stomach and Bowel: Stomach, small bowel loops, and colon are unremarkable. Peritoneum: No abnormal intraperitoneal fluid. No free air. Ventral Wall: No hernias. Abdominal Nodes: No retroperitoneal or mesenteric adenopathy by size criteria. Vessels: Aorta and inferior vena cava are normal in size. PELVIS: Pelvic Organs: Unremarkable. Bladder: Unremarkable. Pelvic Nodes: No enlarged lymph nodes. Miscellaneous: No hernias are seen. Bones: Unremarkable. IMPRESSION: Gallstones and sludge partially fill the gallbladder lumen. There is no sign of infection or neoplasm. A moderate-sized hiatal hernia is position behind the heart. No acute bone or soft tissue lesion is found. Dictated by: Hank Fair M.D. on 01/03/2021 at 14:52 Approved by: Hank Fair M.D. on 01/03/2021 at 14:55
== END ==
PROVIDERS: Family Provider Internal Medicine Interventional Cardiology; PCP Family Medicine; Referring Provider Family Medicine; Visit Provider Family Medicine
DX: R10.11 Right upper quadrant pain (principal); R63.4 Abnormal weight loss; K80.20 Calculus of gallbladder without cholecystitis without obstruction; K82.8 Other specified diseases of gallbladder; K44.9 Diaphragmatic hernia without obstruction or gangrene
CPT/HCPCS: 74177; Q9967

== ENCOUNTER → 2021-01-05 14:28 | Outpatient (CLI) | payer MEDICARE, BC, SELFPAY ==
--- NOTE | 2021-01-05 14:30 | DI.US.S_ITS ---
PROCEDURE: US ABDOMEN LIMITED INDICATIONS: FOLLOW UP GALLSTONES ON CT TECHNIQUE: Real-time focused scanning was performed of the abdomen, with image documentation. COMPARISON: [facility], CT, CT ABDOMEN PELVIS W CON, 01/03/2021, 14:12. FINDINGS: The liver is normal in size and demonstrates no focal lesions. The left lower lobe of the liver is not well seen on this study. Small, mobile gallstones are seen. Mobile sludge is also seen. The gallbladder wall is not thickened, measuring 3 mm or less. No specific pericholecystic fluid is seen. The sonographic Wen sign is negative. There is no biliary dilatation, the common bile duct measures 5 mm. The pancreas is not well seen. Within the right kidney, multiple punctate echogenic foci are seen. On the prior recent CT study, no definite stones are seen, and the ultrasound appearance is most likely related to artifact. At the inferior pole of the right kidney, there is a simple cyst seen that measures up to 1.8 cm. Overall exam quality is limited, secondary to bowel gas. IMPRESSION: Mobile gallstones and sludge are confirmed, without additional sonographic signs of cholecystitis. Dictated by: Agustin Hemphill M.D. on 01/05/2021 at 14:59 Approved by: Agustin Hemphill M.D. on 01/05/2021 at 15:00
== END ==
PROVIDERS: Family Provider Internal Medicine Interventional Cardiology; PCP Family Medicine; Referring Provider Family Medicine; Visit Provider Family Medicine
DX: K80.20 Calculus of gallbladder without cholecystitis without obstruction (principal); R10.11 Right upper quadrant pain; K82.8 Other specified diseases of gallbladder
CPT/HCPCS: 76705

== ENCOUNTER → 2022-09-20 11:56 | Outpatient (CLI) | payer MEDICARE, BC, SELFPAY ==
[2022-09-20 12:46] LABS: Add Manual Diff / Slide Review NO; Basophils Absolute Auto 0 /uL (0-100); Basophils Percent Auto 0.6 % (0-2); Eosinophils Absolute Auto 200 /uL (0-450); Eosinophils Percent Auto 3.5 % (2-4); Hematocrit 46.8 % (41-53); Lymphocytes Absolute Auto 1500 /uL (1100-4500); Lymphocytes Percent Auto 24.9 % (25-40); Mean Corpuscular HGB Conc 34.2 % (30-36); Mean Corpuscular Hemoglobin 33.1 PG (26-34); Mean Corpuscular Volume 96.8 fL (80-100); Monocytes Absolute Auto 600 /uL (0-900); Monocytes Percent Auto 9.1 % (3-14); Neutrophils Absolute Auto 3800 /uL (1500-7000); Neutrophils Percent Auto 61.9 % (50-75); Platelet Count 136 X10^3/uL (150-400); Red Blood Cell Count 4.83 X10^6/uL (4.5-5.9); Red Cell Distribution Width 13.8 % (11.6-14.8); White Blood Cell Count 6.1 X10^3/uL (4.5-11.0)
[2022-09-20 13:03] LABS: Alanine Aminotransferase 19 IU/L (<50); Albumin 4.1 g/dL (3.5-5.0); Albumin Globulin Ratio 1.2 (1.0-2.8); Alkaline Phosphatase 97 U/L (38-126); Aspartate Aminotransferase 28 IU/L (17-59); BUN Creatinine Ratio 12.9 (6-22); Bilirubin Total 0.7 mg/dL (0.2-1.3); Blood Urea Nitrogen 13 mg/dL (9-20); Calcium 9.2 mg/dL (8.4-10.2); Carbon Dioxide 25 mmol/L (22-32); Chloride 106 mmol/L (98-107); Cholesterol 165 mg/dL (140-199); Estimated Glomerular Filt Rate > 60 mL/min (>60); Globulin 3.4 g/dL (1.7-4.1); Glucose 93 mg/dL (80-110); HDL Cholesterol 39 mg/dL (40-60); HEMOLYSIS < 15 (0-50); LDL Cholesterol Calculated 102 mg/dL (<100); Potassium 4.2 mmol/L (3.4-5.1); Sodium 139 mmol/L (137-145); Total Protein 7.5 g/dL (6.3-8.2); Triglycerides 118 mg/dL (35-150)
[2022-09-20 13:36] LABS: Thyroid Stimulating Hormone 1.64 uIU/mL (0.47-4.68)
== END ==
PROVIDERS: Family Provider Internal Medicine Interventional Cardiology; PCP Family Medicine; Referring Provider Family Medicine; Visit Provider Family Medicine
DX: E78.2 Mixed hyperlipidemia (principal); I10 Essential (primary) hypertension
CPT/HCPCS: 36415; 80053; 80061; 84443; 85025

== ENCOUNTER 2022-10-02 10:45 | Inpatient (IN) | payer MEDICARE, OTHER, SELFPAY ==
[2022-10-02] VITALS (11 sets, daily range): BP systolic 133–152; BP diastolic 60–70; PULSE 79–87; RESP 16–18; TEMP 37.4–37.6; O2SAT 93–96; BMI 28.3
--- NOTE | 2022-10-02 13:17 | ED.ABDPAIN ---
HPI - Abdominal Pain <Grzegorz Friedman PA-C - Last Filed: 10/02/22 18:37> General Chief Complaint: Abdominal Pain Stated Complaint: sent by DR caldera problems Time Seen by Provider: 10/02/22 12:08 Source: patient Mode of arrival: Wheelchair History of Present Illness HPI narrative: 87-year-old male with past medical history coronary artery disease, status post four-vessel CABG, status post TAVR, BPH, hypertension, hyperlipidemia presents to the ED with 5 days of right-sided groin pain. Patient states he has had a inguinal hernia for several years. Five days ago, patient was working on his fence, after which he felt that the hernia had popped out, he tried to put it back in and succeeded, however states he has been in severe pain since then. Patient states that he has been able to with the hernia back in place in the past and not experience pain after. Patient spoke with his PCP this morning, who sent him to the ED for further evaluation. Patient denies fever, chills, chest pain, shortness of breath, nausea, vomiting, dysuria, diarrhea, constipation, lightheadedness, dizziness, syncope. No hernia repair surgeries. Related Data Home Medications Medication Instructions Recorded Confirmed tamsulosin 0.4 mg capsule (Flomax) 0.8 mg PO BEDTIME #0 caps 01/26/21 10/02/22 cholecalciferol (vitamin D3) 50 50 mcg PO DAILY 09/20/22 10/02/22 mcg (2,000 unit) capsule cyanocobalamin (vitamin B-12) 1,000 mcg PO DAILY 09/20/22 10/02/22 1,000 mcg capsule finasteride 5 mg tablet 5 mg PO DAILY 10/02/22 10/02/22 Previous Rx's Medication Instructions Recorded atorvastatin 20 mg tablet See Rx Instructions .Route 09/20/22 .COMPLEX #90 tabs lisinopril 40 mg tablet See Rx Instructions PO DAILY #90 09/20/22 tabs metoprolol succinate 25 mg 25 mg PO DAILY #90 tabs 09/20/22 tablet,extended release 24 hr pantoprazole 40 mg tablet,delayed See Rx Instructions .Route 09/20/22 release .COMPLEX #30 tabs Allergies Allergy/AdvReac Type Severity Reaction Status Date / Time No Known Drug Allergies Allergy Verified 10/02/22 10:52 Review of Systems <Grzegorz Friedman PA-C - Last Filed: 10/02/22 18:37> Review of Systems ROS Unobtainable: All systems reviewed & are unremarkable except as noted in HPI and below Constitutional Constitutional: Denies chills, Denies fatigue, Denies fever(s), Denies frequent falls, Denies lethargy and Denies weakness Eyes Eyes: Denies change in vision, Denies eye discharge, Denies irritation and Denies loss of vision ENT Ears, Nose, Mouth, and Throat: Denies change in voice, Denies dizziness, Denies neck pain, Denies sore throat and Denies throat swelling Cardiovascular Cardiovascular: Denies chest pain, Denies irregular heart rhythm, Denies lightheadedness, Denies palpitations, Denies dyspnea, Denies dyspnea on exertion and Denies orthopnea Respiratory Respiratory: Denies cough, Denies dyspnea, Denies dyspnea on exertion and Denies wheezing Gastrointestinal Gastrointestinal: Denies abdominal pain, Denies change in bowel habits, Denies diarrhea, Denies nausea and Denies vomiting Comments: Groin pain, swelling Genitourinary Genitourinary: Denies hematuria, Denies flank pain, Denies urinary incontinence and Denies urinary urgency Musculoskeletal Musculoskeletal: Denies back pain, Denies muscle weakness, Denies neck pain, Denies numbness and Denies tingling Integumentary/Breasts Skin/Breast: Denies pruritus, Denies erythema, Denies rash and Denies wounds Neurologic Neurologic: Denies behavioral changes, Denies confusion, Denies dizziness, Denies frequent falls, Denies loss of vision, Denies numbness, Denies tingling and Denies weakness Psychiatric Psychiatric: Denies anxiety, Denies behavioral changes, Denies confusion, Denies depression, Denies homicidal ideation and Denies suicidal ideation Endocrine Endocrine: Denies fatigue, Denies flushing and Denies palpitations Hematologic/Lymphatic Hematologic/Lymphatic: Denies easy bruising Allergic/Immunologic Allergic/Immunologic: Denies urticaria, Denies throat swelling and Denies wheezing Patient History <Grzegorz Friedman PA-C - Last Filed: 10/02/22 18:37> Medical History (Updated 10/02/22 @ 18:30 by Grzegorz Friedman PA-C) BPH (benign prostatic hyperplasia) Essential hypertension (07/14/04) Mixed hyperlipidemia (12/15/02) 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) Surgical History History of aortic valve replacement (04/07/15) Family History Father Heart disease Mother Heart disease Social History marital status: Smoking Status: Former smoker alcohol intake: current (ON OCCASION ) substance use type: does not use Smoking Status: Former smoker alcohol intake frequency: holidays/special occasions only Substance Use Type: does not use Exam <Grzegorz Friedman PA-C - Last Filed: 10/02/22 18:37> Narrative Exam Narrative: Const General:?cooperative, healthy appearing and comfortable HENMT Head:?normal to inspection Ears:?hearing grossly normal bilaterally Nose:?external nose normal Face and sinus:?normal facial exam and sinuses nontender Mouth:?oral mucosae normal Throat:?posterior oropharynx normal Eyes General:?appearance normal, both eyes and all related structures Neck Neck:?normal visual inspection and no lymphadenopathy noted Resp Effort & Inspection:?normal respiratory effort Auscultation:?clear to auscultation bilaterally Cardio Rate:?regular rate Rhythm:?regular rhythm GI Abdomen is soft, nondistended. There is a palpable mass in the right groin, which is tender to palpation. Skin is intact without erythema or discharge. Neuro General:?patient alert, patient awake and patient oriented x3 Initial Vital Signs Initial Vital Signs: Vital Signs Temperature 99.3 F 10/02/22 10:48 Pulse Rate 87 10/02/22 10:48 Respiratory Rate 16 10/02/22 10:48 Blood Pressure 148/70 H 10/02/22 10:48 Pulse Oximetry 96 10/02/22 10:48 Oxygen Delivery Method Room Air 10/02/22 10:48 <Brii Pritchett DO - Last Filed: 10/02/22 18:50> Initial Vital Signs Initial Vital Signs: Vital Signs Temperature 99.3 F 10/02/22 10:48 Pulse Rate 87 10/02/22 10:48 Respiratory Rate 16 10/02/22 10:48 Blood Pressure 148/70 H 10/02/22 10:48 Pulse Oximetry 96 10/02/22 10:48 Oxygen Delivery Method Room Air 10/02/22 10:48 Course <Grzegorz Friedman PA-C - Last Filed: 10/02/22 18:37> Orders Ordered: ED Orders 10/02/22 13:18 CBC Auto Diff [Complete Blood Count AUTO DIFF] Stat CMP [Comprehensive Metabolic Panel] Stat Lactate (Lactic Acid) Stat PT [Prothrombin Time INR] Stat PTT [PTT Partial Thromboplastin Ronal] Stat 10/02/22 13:58 CT abdomen pelvis w con Stat 10/02/22 14:15 Urine Microscopic Stat 10/02/22 15:48 COVID19 -Nasal RAPID Stat 10/02/22 17:12 Consult to General Surgery Stat 10/02/22 17:55 Blood Culture Stat Discontinued Medications Piperacillin Sod/Tazobactam (Sod 4.5 gm/ Sodium Chloride) 100 mls @ 200 mls/hr IV NOW ONE Stop: 10/02/22 17:12 Last Infusion: 10/02/22 18:39 Dose: 0 mls/hr Documented By: Admin: 10/02/22 18:03 Dose: 200 mls/hr Documented By: AT Vital Signs Vital signs: Vital Signs - 8 hr 10/02/22 10:51 10/02/22 10:51 10/02/22 13:19 Pulse Rate 82 Respiratory Rate 18 Blood Pressure 148/70 H Pulse Oximetry 96 95 Oxygen Delivery Method Room Air 10/02/22 13:19 10/02/22 15:23 10/02/22 15:24 Pulse Rate 85 Respiratory Rate Blood Pressure 152/67 H Pulse Oximetry 94 93 Oxygen Delivery Method Room Air 10/02/22 15:24 10/02/22 15:30 10/02/22 15:30 Pulse Rate 83 Respiratory Rate Blood Pressure 139/69 147/68 H Pulse Oximetry 93 Oxygen Delivery Method Room Air 10/02/22 16:00 10/02/22 16:00 10/02/22 16:30 Pulse Rate 84 Respiratory Rate Blood Pressure 133/63 144/67 H Pulse Oximetry 95 Oxygen Delivery Method Room Air 10/02/22 16:30 10/02/22 17:00 10/02/22 17:01 Pulse Rate 82 82 82 Respiratory Rate Blood Pressure Pulse Oximetry 94 94 94 Oxygen Delivery Method Room Air Room Air 10/02/22 17:01 Pulse Rate Respiratory Rate Blood Pressure 144/64 H Pulse Oximetry Oxygen Delivery Method <Brii Pritchett, - Last Filed: 10/02/22 18:50> Orders Ordered: ED Orders 10/02/22 13:18 CBC Auto Diff [Complete Blood Count AUTO DIFF] Stat CMP [Comprehensive Metabolic Panel] Stat Lactate (Lactic Acid) Stat PT [Prothrombin Time INR] Stat PTT [PTT Partial Thromboplastin Ronal] Stat 10/02/22 13:58 CT abdomen pelvis w con Stat 10/02/22 14:15 Urine Microscopic Stat 10/02/22 15:48 COVID19 -Nasal RAPID Stat 10/02/22 17:12 Consult to General Surgery Stat 10/02/22 17:55 Blood Culture Stat Discontinued Medications Piperacillin Sod/Tazobactam (Sod 4.5 gm/ Sodium Chloride) 100 mls @ 200 mls/hr IV NOW ONE Stop: 10/02/22 17:12 Last Infusion: 10/02/22 18:39 Dose: 0 mls/hr Documented By: Admin: 10/02/22 18:03 Dose: 200 mls/hr Documented By: AT Vital Signs Vital signs: Vital Signs - 8 hr 10/02/22 10:51 10/02/22 10:51 10/02/22 13:19 Pulse Rate 82 Respiratory Rate 18 Blood Pressure 148/70 H Pulse Oximetry 96 95 Oxygen Delivery Method Room Air 10/02/22 13:19 10/02/22 15:23 10/02/22 15:24 Pulse Rate 85 Respiratory Rate Blood Pressure 152/67 H Pulse Oximetry 94 93 Oxygen Delivery Method Room Air 10/02/22 15:24 10/02/22 15:30 10/02/22 15:30 Pulse Rate 83 Respiratory Rate Blood Pressure 139/69 147/68 H Pulse Oximetry 93 Oxygen Delivery Method Room Air 10/02/22 16:00 10/02/22 16:00 10/02/22 16:30 Pulse Rate 84 Respiratory Rate Blood Pressure 133/63 144/67 H Pulse Oximetry 95 Oxygen Delivery Method Room Air 10/02/22 16:30 10/02/22 17:00 10/02/22 17:01 Pulse Rate 82 82 82 Respiratory Rate Blood Pressure Pulse Oximetry 94 94 94 Oxygen Delivery Method Room Air Room Air 10/02/22 17:01 Pulse Rate Respiratory Rate Blood Pressure 144/64 H Pulse Oximetry Oxygen Delivery Method MDM - Abdominal Pain <Hyma HUGH Friedman - Last Filed: 10/02/22 18:37> Lab Data 10/02/22 13:18 10/02/22 13:18 Labs: Lab Results 10/02/22 10/02/22 10/02/22 Range/Units 13:18 13:18 13:18 WBC 15.3 H (4.5-11.0) X10^3/uL RBC 4.67 (4.5-5.9) X10^6/uL Hgb 15.3 (13.5-17.5) g/dL Hct 45.7 (41-53) % MCV 97.8 (80-100) fL MCH 32.8 (26-34) PG MCHC 33.5 (30-36) % RDW 14.0 (11.6-14.8) % Plt Count 101 L (150-400) X10^3/uL Neut % (Auto) 87.1 H (50-75) % Lymph % (Auto) 4.9 L (25-40) % [place] % (Auto) 7.7 (3-14) % Eos % (Auto) 0.1 L (2-4) % Baso % (Auto) 0.2 (0-2) % Neut # (Auto) 09970 H (6773-2787) /uL Lymph # (Auto) 800 L (9300-6581) /uL [place] # (Auto) 1200 H (0-900) /uL Eos # (Auto) 0 (0-450) /uL Baso # (Auto) 0 (0-100) /uL PT 16.9 H (10.1-12.7) SECONDS INR 1.5 H (0.9-1.3) APTT 33 (26-36) SECONDS Sodium 134 L (137-145) mmol/L Potassium 4.2 (3.4-5.1) mmol/L Chloride 102 (98-107) mmol/L Carbon Dioxide 24 (22-32) mmol/L BUN 22 H (9-20) mg/dL Creatinine 1.04 (0.66-1.25) mg/dL Estimated GFR > 60 (>60) mL/min BUN/Creatinine Ratio 21.2 (6-22) Glucose 98 (80-110) mg/dL Lactate (0.7-2.1) mmol/L Calcium 8.9 (8.4-10.2) mg/dL Total Bilirubin 1.4 H (0.2-1.3) mg/dL AST 23 (17-59) IU/L ALT 17 (<50) IU/L Alkaline Phosphatase 57 (38-126) U/L Total Protein 7.4 (6.3-8.2) g/dL Albumin 3.7 (3.5-5.0) g/dL Globulin 3.7 (1.7-4.1) g/dL Albumin/Globulin Ratio 1.0 (1.0-2.8) Urine RBC (0-5/HPF) Urine WBC (0-5/HPF) Ur Squamous Epith Cells (0-5/HPF) Urine Bacteria (None) Hyaline Casts (None) Ur Culture Indicated? SARS-CoV-2 (PCR) (Negative) 10/02/22 10/02/22 10/02/22 Range/Units 13:18 14:15 15:48 WBC (4.5-11.0) X10^3/uL RBC (4.5-5.9) X10^6/uL Hgb (13.5-17.5) g/dL Hct (41-53) % MCV (80-100) fL MCH (26-34) PG MCHC (30-36) % RDW (11.6-14.8) % Plt Count (150-400) X10^3/uL Neut % (Auto) (50-75) % Lymph % (Auto) (25-40) % [place]mons[place] % (Auto) (3-14) % Eos % (Auto) (2-4) % Baso % (Auto) (0-2) % Neut # (Auto) (8982-8511) /uL Lymph # (Auto) (0167-4459) /uL Edmonson # (Auto) (0-900) /uL Eos # (Auto) (0-450) /uL Baso # (Auto) (0-100) /uL PT (10.1-12.7) SECONDS INR (0.9-1.3) APTT (26-36) SECONDS Sodium (137-145) mmol/L Potassium (3.4-5.1) mmol/L Chloride (98-107) mmol/L Carbon Dioxide (22-32) mmol/L BUN (9-20) mg/dL Creatinine (0.66-1.25) mg/dL Estimated GFR (>60) mL/min BUN/Creatinine Ratio (6-22) Glucose (80-110) mg/dL Lactate 1.3 (0.7-2.1) mmol/L Calcium (8.4-10.2) mg/dL Total Bilirubin (0.2-1.3) mg/dL AST (17-59) IU/L ALT (<50) IU/L Alkaline Phosphatase (38-126) U/L Total Protein (6.3-8.2) g/dL Albumin (3.5-5.0) g/dL Globulin (1.7-4.1) g/dL Albumin/Globulin Ratio (1.0-2.8) Urine RBC None seen (0-5/HPF) Urine WBC 0-1/hpf (0-5/HPF) Ur Squamous Epith Cells None seen (0-5/HPF) Urine Bacteria None seen (None) Hyaline Casts 1-5/lpf (None) Ur Culture Indicated? Cult not indicated SARS-CoV-2 (PCR) Negative (Negative) Point of care testing: Urine Dip Bedside Urine Glucose Negative Bedside Urine Bilirubin - Negative Bedside Urine Ketone - Negative Urine Specific [place] 1.020 Bedside Urine Occult Blood +/- Bedside Urine pH 6.0 Bedside Urine Protein + 30 Bedside Urine Urobilinogen - Negative Bedside Urine Nitrite - Negative Bedside Urine Leukocytes - Negative Esterase MDM Narrative Medical decision making narrative: 87-year-old male with past medical history coronary artery disease, status post four-vessel CABG, status post TAVR, BPH, hypertension, hyperlipidemia presents to the ED with 5 days of right-sided groin pain. Concern for reducible vs incarcerated versus strangulated hernia versus other intra-abdominal pathology versus other. Will obtain labs, lactate, CT abdomen pelvis. Patient declined pain medication, states the pain is only worse when he stands or moves around. Will reassess. WBC elevated to 15.3. CT abdomen pelvis concerning for appendicitis that is at least partially perforated, with marked inflammatory change in the right lower quadrant. Dr. Trinidad from general surgery was consulted, she recommends medical management with Zosyn, given patient's age. Recommends admission to hospitalist and she will see the patient tomorrow as consulted. Consulted hospitalist for patient Dr. Toussaint, and he graciously accepts patient for admission. Findings and disposition discussed with patient and patient's family. They verbalized understanding and are agreeable to the plan. Patient was started on Zosyn. Patient continues to be stable. Medical records reviewed: Yes <Brii Pritchett, DO - Last Filed: 10/02/22 18:50> Lab Data Labs: Lab Results 10/02/22 10/02/22 10/02/22 Range/Units 13:18 13:18 13:18 WBC 15.3 H (4.5-11.0) X10^3/uL RBC 4.67 (4.5-5.9) X10^6/uL Hgb 15.3 (13.5-17.5) g/dL Hct 45.7 (41-53) % MCV 97.8 (80-100) fL MCH 32.8 (26-34) PG MCHC 33.5 (30-36) % RDW 14.0 (11.6-14.8) % Plt Count 101 L (150-400) X10^3/uL Neut % (Auto) 87.1 H (50-75) % Lymph % (Auto) 4.9 L (25-40) % [place] % (Auto) 7.7 (3-14) % Eos % (Auto) 0.1 L (2-4) % Baso % (Auto) 0.2 (0-2) % Neut # (Auto) 70605 H (5110-1422) /uL Lymph # (Auto) 800 L (6821-4088) /uL Edmons[place] # (Auto) 1200 H (0-900) /uL Eos # (Auto) 0 (0-450) /uL Baso # (Auto) 0 (0-100) /uL PT 16.9 H (10.1-12.7) SECONDS INR 1.5 H (0.9-1.3) APTT 33 (26-36) SECONDS Sodium 134 L (137-145) mmol/L Potassium 4.2 (3.4-5.1) mmol/L Chloride 102 (98-107) mmol/L Carbon Dioxide 24 (22-32) mmol/L BUN 22 H (9-20) mg/dL Creatinine 1.04 (0.66-1.25) mg/dL Estimated GFR > 60 (>60) mL/min BUN/Creatinine Ratio 21.2 (6-22) Glucose 98 (80-110) mg/dL Lactate (0.7-2.1) mmol/L Calcium 8.9 (8.4-10.2) mg/dL Total Bilirubin 1.4 H (0.2-1.3) mg/dL AST 23 (17-59) IU/L ALT 17 (<50) IU/L Alkaline Phosphatase 57 (38-126) U/L Total Protein 7.4 (6.3-8.2) g/dL Albumin 3.7 (3.5-5.0) g/dL Globulin 3.7 (1.7-4.1) g/dL Albumin/Globulin Ratio 1.0 (1.0-2.8) Urine RBC (0-5/HPF) Urine WBC (0-5/HPF) Ur Squamous Epith Cells (0-5/HPF) Urine Bacteria (None) Hyaline Casts (None) Ur Culture Indicated? SARS-CoV-2 (PCR) (Negative) 10/02/22 10/02/22 10/02/22 Range/Units 13:18 14:15 15:48 WBC (4.5-11.0) X10^3/uL RBC (4.5-5.9) X10^6/uL Hgb (13.5-17.5) g/dL Hct (41-53) % MCV (80-100) fL MCH (26-34) PG MCHC (30-36) % RDW (11.6-14.8) % Plt Count (150-400) X10^3/uL Neut % (Auto) (50-75) % Lymph % (Auto) (25-40) % [place] % (Auto) (3-14) % Eos % (Auto) (2-4) % Baso % (Auto) (0-2) % Neut # (Auto) (9806-9601) /uL Lymph # (Auto) (0640-2113) /uL [place] # (Auto) (0-900) /uL Eos # (Auto) (0-450) /uL Baso # (Auto) (0-100) /uL PT (10.1-12.7) SECONDS INR (0.9-1.3) APTT (26-36) SECONDS Sodium (137-145) mmol/L Potassium (3.4-5.1) mmol/L Chloride (98-107) mmol/L Carbon Dioxide (22-32) mmol/L BUN (9-20) mg/dL Creatinine (0.66-1.25) mg/dL Estimated GFR (>60) mL/min BUN/Creatinine Ratio (6-22) Glucose (80-110) mg/dL Lactate 1.3 (0.7-2.1) mmol/L Calcium (8.4-10.2) mg/dL Total Bilirubin (0.2-1.3) mg/dL AST (17-59) IU/L ALT (<50) IU/L Alkaline Phosphatase (38-126) U/L Total Protein (6.3-8.2) g/dL Albumin (3.5-5.0) g/dL Globulin (1.7-4.1) g/dL Albumin/Globulin Ratio (1.0-2.8) Urine RBC None seen (0-5/HPF) Urine WBC 0-1/hpf (0-5/HPF) Ur Squamous Epith Cells None seen (0-5/HPF) Urine Bacteria None seen (None) Hyaline Casts 1-5/lpf (None) Ur Culture Indicated? Cult not indicated SARS-CoV-2 (PCR) Negative (Negative) Point of care testing: Urine Dip Bedside Urine Glucose Negative Bedside Urine Bilirubin - Negative Bedside Urine Ketone - Negative Urine Specific [place] 1.020 Bedside Urine Occult Blood +/- Bedside Urine pH 6.0 Bedside Urine Protein + 30 Bedside Urine Urobilinogen - Negative Bedside Urine Nitrite - Negative Bedside Urine Leukocytes - Negative Esterase Discharge Plan Departure Patient Disposition: Admitted As Inpatient Clinical Impression: Appendicitis with perforation Admit Date/Time: 10/02/22 18:12 Admit Provider: Dmitry Toussaint <Brii Pritchett, - Last Filed: 10/02/22 18:50> Cosign ED Attending Cosignature Attestation: I was immediately available in the department for consultation. Documentation has been reviewed.
[2022-10-02 13:34] LABS: Add Manual Diff / Slide Review NO; Basophils Absolute Auto 0 /uL (0-100); Basophils Percent Auto 0.2 % (0-2); Eosinophils Absolute Auto 0 /uL (0-450); Eosinophils Percent Auto 0.1 % (2-4); Hematocrit 45.7 % (41-53); Hemoglobin 15.3 g/dL (13.5-17.5); Lymphocytes Absolute Auto 800 /uL (1100-4500); Lymphocytes Percent Auto 4.9 % (25-40); Mean Corpuscular HGB Conc 33.5 % (30-36); Mean Corpuscular Hemoglobin 32.8 PG (26-34); Mean Corpuscular Volume 97.8 fL (80-100); Monocytes Absolute Auto 1200 /uL (0-900); Monocytes Percent Auto 7.7 % (3-14); Neutrophils Absolute Auto 13300 /uL (1500-7000); Neutrophils Percent Auto 87.1 % (50-75); Platelet Count 101 X10^3/uL (150-400); Red Blood Cell Count 4.67 X10^6/uL (4.5-5.9); White Blood Cell Count 15.3 X10^3/uL (4.5-11.0)
[2022-10-02 13:43] LABS: INR 1.5 (0.9-1.3); Prothrombin Time 16.9 SECONDS (10.1-12.7)
[2022-10-02 13:45] LABS: PTT Partial Thromboplastin Tim 33 SECONDS (26-36)
[2022-10-02 13:48] LABS: Alanine Aminotransferase 17 IU/L (<50); Albumin 3.7 g/dL (3.5-5.0); Alkaline Phosphatase 57 U/L (38-126); Aspartate Aminotransferase 23 IU/L (17-59); BUN Creatinine Ratio 21.2 (6-22); Bilirubin Total 1.4 mg/dL (0.2-1.3); Blood Urea Nitrogen 22 mg/dL (9-20); Calcium 8.9 mg/dL (8.4-10.2); Carbon Dioxide 24 mmol/L (22-32); Chloride 102 mmol/L (98-107); Estimated Glomerular Filt Rate > 60 mL/min (>60); Globulin 3.7 g/dL (1.7-4.1); Glucose 98 mg/dL (80-110); HEMOLYSIS 50 (0-50); Potassium 4.2 mmol/L (3.4-5.1); Sodium 134 mmol/L (137-145); Total Protein 7.4 g/dL (6.3-8.2)
[2022-10-02 13:49] LABS: Lactate (Lactic Acid) 1.3 mmol/L (0.7-2.1)
--- NOTE | 2022-10-02 13:58 | DI.CT.S_ITS ---
PROCEDURE: CT ABDOMEN PELVIS W CON INDICATIONS: Groin hernia TECHNIQUE: After the administration of IV contrast, axial sections were acquired from the lung bases to the pubic symphysis. Coronal and sagittal reformats were performed. For radiation dose reduction, the following was used: automated exposure control, adjustment of mA and/or kV according to patient size. COMPARISON: [facility], CT, CT ABDOMEN PELVIS W CON, 01/03/2021, 14:12. FINDINGS: Image quality: Excellent. Lung bases: Scattered subcentimeter nodules, unchanged compared to prior exam.. Heart: No significant findings. ABDOMEN: Liver: Liver measures 18.2 cm with steatosis. Gallbladder: Unchanged appearance of dependent luminal calcifications. No wall thickening. Biliary ducts: Unremarkable. Pancreas: Unremarkable. Spleen: Unremarkable. Adrenal Glands: Unremarkable. Kidneys and Ureters: Simple right renal cyst. Air within mild Stomach and Bowel: Colonic diverticula are present. Prominent hiatal hernia. There is marked inflammatory change within the right lower quadrant. The partially visualized appendix is enlarged measuring 1 cm. There is adjacent focus of thickened sigmoid colon with pericolonic inflammatory change. In addition, in the dependent pelvis posterior to the bladder there is a 3.2 cm low-attenuation collection with calcifications. Ventral Wall: No hernia. Abdominal Nodes: No retroperitoneal or mesenteric adenopathy by size criteria. Vessels: Aorta and inferior vena cava are normal in size. PELVIS: Pelvic Organs: Unremarkable. Bladder: Unremarkable. Pelvic Nodes: No enlarged lymph nodes. Miscellaneous: Mild fluid is noted in the right inguinal canal. Bones: Unremarkable. IMPRESSION: Enlarged appearance of at least partially perforated appendix with marked inflammatory change in the right lower quadrant. Overall appearance most concerning for appendicitis likely at least partially perforated. Low-attenuation focus in the posterior inferior pelvis with calcification could represent appendiceal fluid with perforated appendicoliths. Inflammatory change within the adjacent sigmoid colon suspected to be secondary to appendicitis inflammation. The above findings were discussed with Elder Lantigua on 10/02/2022 at 2:50 p.m.. Dictated by: Sara Warren M.D. on 10/02/2022 at 14:27 Approved by: Sara Warren M.D. on 10/02/2022 at 15:17
[2022-10-02 15:22] LABS: Bacteria Urine None Seen; Culture Indicated Urine Cult Not Indicated; Hyaline Casts Urine 1-5/LPF; RBC Urine None Seen (0-5/HPF); Squamous Epithelial Cell Urine None Seen (0-5/HPF); WBC Urine 0-1/HPF (0-5/HPF)
[2022-10-02 16:21] LABS: COVID19 -Nasal RAPID Negative (Negative)
--- NOTE | 2022-10-02 17:44 | PM.CALLCOV.1 ---
Call Coverage Note Note Date of Patient Contact: 10/02/22 Narrative of Care Provided: Discussed with ED. Right inguinal hernia not strangulated, not incarcerated in the setting of ruptured appendicitis with phelgmon. IV antiobiotics diet as tolerated No surgical intervention at this time, is at high risk of pelvic abscess where fecal lith settled.
[2022-10-02] MEDS: PIPERACILLIN/TAZO 4.5 GM in SODIUM CHLORIDE 0.9% 100 ML IV (18:03)
[2022-10-02] MEDS: TAMSULOSIN 0.4 MG CAPSULE 0.8 MG PO (22:12)
[2022-10-02] MEDS: ACETAMINOPHEN 325 MG TABLET 650 MG PO (22:14)
[2022-10-02] MEDS: ONDANSETRON 4 MG/2 ML INJ IV (22:14)
[2022-10-02] MEDS: HYDROCODONE/ACET 5/325 TABLET 1 TAB PO (22:14)
[2022-10-02] MEDS: SODIUM CHLORIDE 0.9% 1,000 ML 100 ML IV (22:15)
[2022-10-03] MEDS: PIPERACILLIN/TAZO 3.375 GM in SODIUM CHLORIDE 0.9% 100 ML IV ×3 (01:04→16:41)
[2022-10-03] MEDS: ACETAMINOPHEN 325 MG TABLET 650 MG PO ×4 (04:11→21:20)
[2022-10-03 06:37] LABS: Add Manual Diff / Slide Review NO; Basophils Absolute Auto 100 /uL (0-100); Basophils Percent Auto 0.4 % (0-2); Eosinophils Absolute Auto 0 /uL (0-450); Eosinophils Percent Auto 0.3 % (2-4); Hematocrit 42.4 % (41-53); Hemoglobin 14.1 g/dL (13.5-17.5); Lymphocytes Absolute Auto 900 /uL (1100-4500); Lymphocytes Percent Auto 6.4 % (25-40); Mean Corpuscular HGB Conc 33.2 % (30-36); Mean Corpuscular Hemoglobin 32.6 PG (26-34); Mean Corpuscular Volume 97.9 fL (80-100); Monocytes Absolute Auto 1100 /uL (0-900); Monocytes Percent Auto 8.4 % (3-14); Neutrophils Absolute Auto 11400 /uL (1500-7000); Neutrophils Percent Auto 84.5 % (50-75); Platelet Count 91 X10^3/uL (150-400); Red Blood Cell Count 4.33 X10^6/uL (4.5-5.9); Red Cell Distribution Width 13.8 % (11.6-14.8); White Blood Cell Count 13.5 X10^3/uL (4.5-11.0)
[2022-10-03 06:48] LABS: Alanine Aminotransferase 17 IU/L (<50); Albumin 3.1 g/dL (3.5-5.0); Alkaline Phosphatase 53 U/L (38-126); Aspartate Aminotransferase 22 IU/L (17-59); BUN Creatinine Ratio 19.8 (6-22); Bilirubin Total 1.5 mg/dL (0.2-1.3); Blood Urea Nitrogen 22 mg/dL (9-20); Calcium 8.2 mg/dL (8.4-10.2); Carbon Dioxide 24 mmol/L (22-32); Chloride 105 mmol/L (98-107); Estimated Glomerular Filt Rate > 60 mL/min (>60); Globulin 3.2 g/dL (1.7-4.1); Glucose 106 mg/dL (80-110); HEMOLYSIS < 15 (0-50); Potassium 3.8 mmol/L (3.4-5.1); Sodium 136 mmol/L (137-145); Total Protein 6.3 g/dL (6.3-8.2)
[2022-10-03 08:00] VITALS: BP 122/57; PULSE 67; RESP 16; TEMP 36.8; O2SAT 95
[2022-10-03 08:51] VITALS: BP 122/57
[2022-10-03] MEDS: PANTOPRAZOLE DR 40 MG TABLET PO (08:51)
[2022-10-03] MEDS: FLUCONAZOLE 200 MG/100 ML PIGGYBACK 100 MG IV (08:51)
[2022-10-03] MEDS: FINASTERIDE 5 MG TABLET PO (08:51)
[2022-10-03] MEDS: ENOXAPARIN 40 MG/0.4 ML SYRINGE SUBCUT (08:51)
[2022-10-03] MEDS: METOPROLOL ER 25 MG TABLET PO (08:51)
--- NOTE | 2022-10-03 08:52 | PM.HP.1 ---
History of Present Illness History of Present Illness Date Patient Seen: 10/03/22 Time Patient Seen: 08:52 Chief complaint: sent by hernia problems Narrative: 87-year-old with known cardiac history with transcatheter aortic valve implantation coronary artery disease with four-vessel CABG in 2010 hypertension hyperlipidemia BPH. Patient has a known history of an inguinal hernia which causes intermittent pain. Four days ago patient states began having abdominal pain and thought maybe his inguinal hernia was causing problems. He tried to reduce it at home she says he was successful doing. The pain has continued since that time. Pain is located in his right lower quadrant lower abdominal area. Some left lower quadrant pain. Pain is described as moderate to severe. Patient lives at home with his and was concerned so she called in and patient was evaluated in the emergency department for possible strangulation incarceration of hernia. Says he has been eating and drinking well. He is had no fevers or chills. He is had no vomiting or diarrhea has had bowel movements and passing gas. He denies any significant temperature. In the emergency department patient had laboratory tests and diagnostic imaging patient's laboratory tests of note showed an elevated white blood cell count. Slightly elevated INR at 1.5 mild hyponatremia normal liver function tests normal liver protein urinalysis showed no signs of infection and COVID test was negative. CT scan of his abdomen and pelvis showed enlarged appearance of at least partially perforated appendix with markedly inflamed changes in the right lower quadrant parents is turning screening for appendicitis and possible perforation. General surgery was consulted in the emergency department who recommended the patient admitted to the hospital with IV antibiotics and the medicine team was consulted for medical care. Patient is resting comfortably in bed at the time of this dictation and family at the bedside. 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) Surgical History History of aortic valve replacement (04/07/15) Family History Father Heart disease Mother Heart disease Social History marital status: household members: spouse Smoking Status: Former smoker alcohol intake: never substance use type: does not use Meds Home Medications and Allergies Home Medications Medication Instructions Recorded Confirmed Type tamsulosin 0.4 mg capsule (Flomax) 0.8 mg PO BEDTIME #0 caps 01/26/21 10/02/22 History atorvastatin 20 mg tablet See Rx Instructions .Route 09/20/22 10/02/22 Rx .COMPLEX #90 tabs cholecalciferol (vitamin D3) 50 50 mcg PO DAILY 09/20/22 10/02/22 History mcg (2,000 unit) capsule cyanocobalamin (vitamin B-12) 1,000 mcg PO DAILY 09/20/22 10/02/22 History 1,000 mcg capsule lisinopril 40 mg tablet See Rx Instructions PO DAILY #90 09/20/22 10/02/22 Rx tabs metoprolol succinate 25 mg 25 mg PO DAILY #90 tabs 09/20/22 10/02/22 Rx tablet,extended release 24 hr pantoprazole 40 mg tablet,delayed See Rx Instructions .Route 09/20/22 10/02/22 Rx release .COMPLEX #30 tabs finasteride 5 mg tablet 5 mg PO DAILY 10/02/22 10/02/22 History Allergies Allergy/AdvReac Type Severity Reaction Status Date / Time No Known Drug Allergies Allergy Verified 10/02/22 10:52 Exam Vital Signs (past 8 hours): - 10/03/22 08:00 10/03/22 08:51 Temperature 98.3 F Pulse Rate 67 Respiratory Rate 16 Blood Pressure 122/57 L 122/57 L Pulse Oximetry 95 Oxygen Flow Rate 0 Oxygen Delivery Method Room Air Oxygen Flow Rate 0 Narrative Exam Narrative: Gen.: Alert good historian with the help of his family HEENT: Pupils equal round and reactive or mucosa is moist neck is supple Cardio: S1-S2 systolic murmur regular rate and rhythm Respiratory: Normal respiratory effort lungs are clear Abdomen: Abdomen shows tenderness in his right lower quadrant with some guarding Extremities: Full range of motion no significant edema Neurologic: [Grossly intact.] Objective Labs 10/03/22 06:25 10/03/22 06:25 Labs: Laboratory Results - last 24 hr 10/02/22 10/02/22 10/02/22 13:18 13:18 13:18 WBC 15.3 H RBC 4.67 Hgb 15.3 Hct 45.7 MCV 97.8 MCH 32.8 MCHC 33.5 RDW 14.0 Plt Count 101 L Neut % (Auto) 87.1 H Lymph % (Auto) 4.9 L [place] % (Auto) 7.7 Eos % (Auto) 0.1 L Baso % (Auto) 0.2 Neut # (Auto) 11549 H Lymph # (Auto) 800 L [place] # (Auto) 1200 H Eos # (Auto) 0 Baso # (Auto) 0 PT 16.9 H INR 1.5 H APTT 33 Sodium 134 L Potassium 4.2 Chloride 102 Carbon Dioxide 24 BUN 22 H Creatinine 1.04 Estimated GFR > 60 BUN/Creatinine Ratio 21.2 Glucose 98 Lactate Calcium 8.9 Total Bilirubin 1.4 H AST 23 ALT 17 Alkaline Phosphatase 57 Total Protein 7.4 Albumin 3.7 Globulin 3.7 Albumin/Globulin Ratio 1.0 Urine RBC Urine WBC Ur Squamous Epith Cells Urine Bacteria Hyaline Casts Ur Culture Indicated? SARS-CoV-2 (PCR) 10/02/22 10/02/22 10/02/22 13:18 14:15 15:48 WBC RBC Hgb Hct MCV MCH MCHC RDW Plt Count Neut % (Auto) Lymph % (Auto) [place] % (Auto) Eos % (Auto) Baso % (Auto) Neut # (Auto) Lymph # (Auto) [place] # (Auto) Eos # (Auto) Baso # (Auto) PT INR APTT Sodium Potassium Chloride Carbon Dioxide BUN Creatinine Estimated GFR BUN/Creatinine Ratio Glucose Lactate 1.3 Calcium Total Bilirubin AST ALT Alkaline Phosphatase Total Protein Albumin Globulin Albumin/Globulin Ratio Urine RBC None seen Urine WBC 0-1/hpf Ur Squamous Epith Cells None seen Urine Bacteria None seen Hyaline Casts 1-5/lpf Ur Culture Indicated? Cult not indicated SARS-CoV-2 (PCR) Negative 10/03/22 10/03/22 06:25 06:25 WBC 13.5 H RBC 4.33 L Hgb 14.1 Hct 42.4 MCV 97.9 MCH 32.6 MCHC 33.2 RDW 13.8 Plt Count 91 L Neut % (Auto) 84.5 H Lymph % (Auto) 6.4 L [place] % (Auto) 8.4 Eos % (Auto) 0.3 L Baso % (Auto) 0.4 Neut # (Auto) 28623 H Lymph # (Auto) 900 L [place] # (Auto) 1100 H Eos # (Auto) 0 Baso # (Auto) 100 PT INR APTT Sodium 136 L Potassium 3.8 Chloride 105 Carbon Dioxide 24 BUN 22 H Creatinine 1.11 Estimated GFR > 60 BUN/Creatinine Ratio 19.8 Glucose 106 Lactate Calcium 8.2 L Total Bilirubin 1.5 H AST 22 ALT 17 Alkaline Phosphatase 53 Total Protein 6.3 Albumin 3.1 L Globulin 3.2 Albumin/Globulin Ratio 1.0 Urine RBC Urine WBC Ur Squamous Epith Cells Urine Bacteria Hyaline Casts Ur Culture Indicated? SARS-CoV-2 (PCR) Assessment & Plan Assessment and plan (1) Appendicitis with perforation: Status: Acute Plan Appendicitis with perforation. Based on CT scan laboratory testing patient has acute appendicitis with perforation. General surgery was consulted yesterday in the emergency department. Recommended admission to the hospital with IV antibiotics. Appreciate their consultation and care and there Surgical management and care of this patient. Patient will be continued on IV antibiotics monitor white blood cell count and electrolytes medically patient has a slight prolonged INR. Patient is not on anticoagulation will go ahead and recheck PT and INR. Bioprosthetic aortic valve. Patient underwent aortic valve bioprosthetic replacement. Patient has a heart murmur. Heart rate sounds good blood pressure is normal. Patient is not on anticoagulation Coronary artery disease status post bypass surgery. Chronic and stable. Patient is on beta-bob and atorvastatin. No recent coronary artery signs or symptoms. Hypertension patient will be continued on his antihypertensives lisinopril and atorvastatin. BPH. Patient has a known history of BPH he is on Flomax and finasteride. Will continue these medications during hospital stay and monitor his ins and outs and signs and symptoms concerning for urinary obstruction. Gastroesophageal reflux. Chronic patient on pantoprazole we will continue his medication during this hospital stay DVT prophylaxis with Lovenox Code status full code
[2022-10-03] MEDS: SODIUM CHLORIDE 0.9% 1,000 ML 100 ML IV (09:07)
--- NOTE | 2022-10-03 10:43 | P.CONS_ITS ---
History of Present Illness Consult details Date Patient Seen: 10/03/22 Time Patient Seen: 10:43 Chief complaint: sent by hernia problems Reason for consult: ruptured appendicitis Requesting provider: Kaveh Poe Narrative: H/o incarcerated RIH that persisted with pain after patient reduced it himself. Anorexia, focal RLQ pain and tenderness. No n/v/f. Meds Home Medications and Allergies Home Medications Medication Instructions Recorded Confirmed Type tamsulosin 0.4 mg capsule (Flomax) 0.8 mg PO BEDTIME #0 caps 01/26/21 10/02/22 History atorvastatin 20 mg tablet See Rx Instructions .Route 09/20/22 10/02/22 Rx .COMPLEX #90 tabs cholecalciferol (vitamin D3) 50 50 mcg PO DAILY 09/20/22 10/02/22 History mcg (2,000 unit) capsule cyanocobalamin (vitamin B-12) 1,000 mcg PO DAILY 09/20/22 10/02/22 History 1,000 mcg capsule lisinopril 40 mg tablet See Rx Instructions PO DAILY #90 09/20/22 10/02/22 Rx tabs metoprolol succinate 25 mg 25 mg PO DAILY #90 tabs 09/20/22 10/02/22 Rx tablet,extended release 24 hr pantoprazole 40 mg tablet,delayed See Rx Instructions .Route 09/20/22 10/02/22 Rx release .COMPLEX #30 tabs finasteride 5 mg tablet 5 mg PO DAILY 10/02/22 10/02/22 History Allergies Allergy/AdvReac Type Severity Reaction Status Date / Time No Known Drug Allergies Allergy Verified 10/02/22 10:52 Review of Systems Review of Systems ROS: Yes All systems reviewed with the patient and are negative except as otherwise documented Exam Vital Signs (past 8 hours): - 10/03/22 08:00 10/03/22 08:51 10/03/22 08:00 Temperature 98.3 F Pulse Rate 67 Respiratory Rate 16 Blood Pressure 122/57 L 122/57 L Pulse Oximetry 95 95 Oxygen Delivery Method Room Air Oxygen Flow Rate 0 0 Oxygen Delivery Method Room Air Oxygen Flow Rate 0 Const General: cooperative and comfortable Nutritional Appearance: average body habitus HENMT Head: normocephalic and atraumatic Eyes General: appearance normal, both eyes and all related structures Sclera: sclerae normal Neck Neck: trachea midline Chest Chest: normal inspection of the chest Resp Effort & Inspection: normal respiratory effort and able to speak in complete sentences Cardio Rate: regular rate Rhythm: regular rhythm GI Palpation: soft Other: FLQ fullness, RIH Skin General: atrophy Neuro General: patient alert, patient awake and patient oriented x3 Cognition: normal cognition Psych Mental Status: mental status grossly normal Judgment: judgment good Objective Labs 10/03/22 06:25 10/03/22 06:25 Labs: Laboratory Results - last 24 hr 10/02/22 10/02/22 10/02/22 13:18 13:18 13:18 WBC 15.3 H RBC 4.67 Hgb 15.3 Hct 45.7 MCV 97.8 MCH 32.8 MCHC 33.5 RDW 14.0 Plt Count 101 L Neut % (Auto) 87.1 H Lymph % (Auto) 4.9 L [place] % (Auto) 7.7 Eos % (Auto) 0.1 L Baso % (Auto) 0.2 Neut # (Auto) 35115 H Lymph # (Auto) 800 L [place] # (Auto) 1200 H Eos # (Auto) 0 Baso # (Auto) 0 PT 16.9 H INR 1.5 H APTT 33 Sodium 134 L Potassium 4.2 Chloride 102 Carbon Dioxide 24 BUN 22 H Creatinine 1.04 Estimated GFR > 60 BUN/Creatinine Ratio 21.2 Glucose 98 Lactate Calcium 8.9 Total Bilirubin 1.4 H AST 23 ALT 17 Alkaline Phosphatase 57 Total Protein 7.4 Albumin 3.7 Globulin 3.7 Albumin/Globulin Ratio 1.0 Urine RBC Urine WBC Ur Squamous Epith Cells Urine Bacteria Hyaline Casts Ur Culture Indicated? SARS-CoV-2 (PCR) 10/02/22 10/02/22 10/02/22 13:18 14:15 15:48 WBC RBC Hgb Hct MCV MCH MCHC RDW Plt Count Neut % (Auto) Lymph % (Auto) [place] % (Auto) Eos % (Auto) Baso % (Auto) Neut # (Auto) Lymph # (Auto) [place] # (Auto) Eos # (Auto) Baso # (Auto) PT INR APTT Sodium Potassium Chloride Carbon Dioxide BUN Creatinine Estimated GFR BUN/Creatinine Ratio Glucose Lactate 1.3 Calcium Total Bilirubin AST ALT Alkaline Phosphatase Total Protein Albumin Globulin Albumin/Globulin Ratio Urine RBC None seen Urine WBC 0-1/hpf Ur Squamous Epith Cells None seen Urine Bacteria None seen Hyaline Casts 1-5/lpf Ur Culture Indicated? Cult not indicated SARS-CoV-2 (PCR) Negative 10/03/22 10/03/22 06:25 06:25 WBC 13.5 H RBC 4.33 L Hgb 14.1 Hct 42.4 MCV 97.9 MCH 32.6 MCHC 33.2 RDW 13.8 Plt Count 91 L Neut % (Auto) 84.5 H Lymph % (Auto) 6.4 L [place] % (Auto) 8.4 Eos % (Auto) 0.3 L Baso % (Auto) 0.4 Neut # (Auto) 96657 H Lymph # (Auto) 900 L [place] # (Auto) 1100 H Eos # (Auto) 0 Baso # (Auto) 100 PT INR APTT Sodium 136 L Potassium 3.8 Chloride 105 Carbon Dioxide 24 BUN 22 H Creatinine 1.11 Estimated GFR > 60 BUN/Creatinine Ratio 19.8 Glucose 106 Lactate Calcium 8.2 L Total Bilirubin 1.5 H AST 22 ALT 17 Alkaline Phosphatase 53 Total Protein 6.3 Albumin 3.1 L Globulin 3.2 Albumin/Globulin Ratio 1.0 Urine RBC Urine WBC Ur Squamous Epith Cells Urine Bacteria Hyaline Casts Ur Culture Indicated? 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 Plan: review of CT shows phelgmon and rupture associated with appendicitis. Plan will be treatment with antibiotics and if successful then interval appy vs no surgery. Two areas of concern are for potential abscess sites: one in pelvis and one in right scrotum. General diet for now, continue antibiotics, Fluconazole added for fever. COVID-19 COVID-19 status: Negative Time Spent With Patient Time with patient: 30 to 49 minutes with 50% spent counseling/coordinating care
--- NOTE | 2022-10-03 11:51 | CM.DANOTE ---
Brief DC Assessment: Patient is an 87 yr old male who was admitted for perforated appendix. Cm met with patient at the bedside he was A&O x3 during cm visit however patient was in a lot of pain and was not really wanting to talk with CM. Patient did state that he is independent with all ADLs at his baseline and does still drive when needed. Patient lives with his and first started dealing with his hernia after lifting and working on his fence. patient currently is not have surgery and is on IV abx. Patient is open to HH if it is needed but would prefer not having home health if it is not necessary. Preferred hh company is [facility] PCP: Dr devries Insurance: MCR and commercial insurance Plan: DC home with no needs but if he is in need at time of DC is open to [facility] only if determined to be needed. Carolyn Carrillo RNnetwork manager Discharge Planning/Care Management Advanced directive, confirm from FAMILY Start: 10/02/22 19:35 Freq: Q24H Status: Active Protocol: Document 10/02/22 19:35 AKP (Rec: 10/02/22 19:36 AKP [id number]) Advance Directive, confirm on record Time 19:35 Person contacted to bring in Copy received No CM Discharge Assessment Start: 10/03/22 11:45 Freq: Status: Active Protocol: Document 10/03/22 11:45 HS (Rec: 10/03/22 11:50 HS [id number]) Discharge Planning Assessment Assigned Beam Dyer Recessed Vat Carolyn Carrillo RNpcmh specialist DPOA/Assigned Designee Name Ida Hernandez- Advance Directives? Yes Advance Directives on File No History Provided By Patient,Family Member,Medical Record Prior Living Arrangements House Household Members spouse Independent with ADL's Yes Is patient alert and oriented? Yes Barriers to Discharge No Discharge Plan Home Transportation Arrangement Home with when medically stable open to HH if needed Referrals Initiated None needed Additional Comment patient is open to HH if it is needed but doesnt want it if not necessary Medicare Choice List Provided Yes Medicare choice list reviewed on patient electronic tablet with SNF/HH Preference [facility] if one is needed Has Agency SNF been contacted No Whiteboard Updated in Patient Room with Yes name and ext. # of Beam Dyer Recessed Vat Review Status In Process Next Review Type Continued Stay Review
[2022-10-03 19:00] VITALS: O2SAT 92
[2022-10-03] MEDS: TAMSULOSIN 0.4 MG CAPSULE 0.8 MG PO (21:18)
[2022-10-03] MEDS: ATORVASTATIN 20 MG TABLET TUBE (21:20)
[2022-10-03 21:30] VITALS: BP 139/71; PULSE 79; RESP 18; TEMP 36.4; O2SAT 93
[2022-10-04] MEDS: PIPERACILLIN/TAZO 3.375 GM in SODIUM CHLORIDE 0.9% 100 ML IV ×3 (02:27→17:46)
[2022-10-04 06:25] LABS: Add Manual Diff / Slide Review NO; Basophils Absolute Auto 0 /uL (0-100); Basophils Percent Auto 0.2 % (0-2); Eosinophils Absolute Auto 200 /uL (0-450); Eosinophils Percent Auto 1.3 % (2-4); Hematocrit 40.7 % (41-53); Hemoglobin 13.5 g/dL (13.5-17.5); Lymphocytes Absolute Auto 700 /uL (1100-4500); Lymphocytes Percent Auto 5.7 % (25-40); Mean Corpuscular HGB Conc 33.2 % (30-36); Mean Corpuscular Hemoglobin 32.8 PG (26-34); Mean Corpuscular Volume 98.7 fL (80-100); Monocytes Absolute Auto 1000 /uL (0-900); Monocytes Percent Auto 8.4 % (3-14); Neutrophils Absolute Auto 10500 /uL (1500-7000); Neutrophils Percent Auto 84.4 % (50-75); Platelet Count 115 X10^3/uL (150-400); Red Blood Cell Count 4.13 X10^6/uL (4.5-5.9); Red Cell Distribution Width 13.5 % (11.6-14.8); White Blood Cell Count 12.5 X10^3/uL (4.5-11.0)
[2022-10-04 06:30] LABS: INR 1.4 (0.9-1.3); Prothrombin Time 16.6 SECONDS (10.1-12.7)
[2022-10-04 06:39] LABS: Alanine Aminotransferase 20 IU/L (<50); Albumin Globulin Ratio 0.9 (1.0-2.8); Alkaline Phosphatase 55 U/L (38-126); Aspartate Aminotransferase 24 IU/L (17-59); BUN Creatinine Ratio 20.6 (6-22); Blood Urea Nitrogen 21 mg/dL (9-20); Calcium 8.1 mg/dL (8.4-10.2); Carbon Dioxide 21 mmol/L (22-32); Chloride 107 mmol/L (98-107); Estimated Glomerular Filt Rate > 60 mL/min (>60); Globulin 3.3 g/dL (1.7-4.1); Glucose 97 mg/dL (80-110); HEMOLYSIS < 15 (0-50); Potassium 3.7 mmol/L (3.4-5.1); Sodium 136 mmol/L (137-145); Total Protein 6.3 g/dL (6.3-8.2)
--- NOTE | 2022-10-04 07:44 | PM.PN.1 ---
Subjective Subjective Date Patient Seen: 10/04/22 Time Patient Seen: 07:44 Interval history: Focal intermittent sharp pain in right pubic area. Exam Vital Signs (past 8 hours): Oxygen Delivery Method Room Air Oxygen Flow Rate 0 Narrative Exam Narrative: abdomen is soft. Focal tenderness right pubic area c/w adenopathy. No right scrotal inflammation. Objective Labs 10/04/22 06:03 10/04/22 06:03 Labs: Laboratory Results - last 24 hr 10/04/22 10/04/22 10/04/22 06:03 06:03 06:03 WBC 12.5 H RBC 4.13 L Hgb 13.5 Hct 40.7 L MCV 98.7 MCH 32.8 MCHC 33.2 RDW 13.5 Plt Count 115 L Neut % (Auto) 84.4 H Lymph % (Auto) 5.7 L [place] % (Auto) 8.4 Eos % (Auto) 1.3 L Baso % (Auto) 0.2 Neut # (Auto) 46929 H Lymph # (Auto) 700 L [place] # (Auto) 1000 H Eos # (Auto) 200 Baso # (Auto) 0 PT 16.6 H INR 1.4 H Sodium 136 L Potassium 3.7 Chloride 107 Carbon Dioxide 21 L BUN 21 H Creatinine 1.02 Estimated GFR > 60 BUN/Creatinine Ratio 20.6 Glucose 97 Calcium 8.1 L Total Bilirubin 1.0 AST 24 ALT 20 Alkaline Phosphatase 55 Total Protein 6.3 Albumin 3.0 L Globulin 3.3 Albumin/Globulin Ratio 0.9 L [facility] Medical History BPH (benign prostatic hyperplasia) Essential hypertension (07/14/04) Mixed hyperlipidemia (12/15/02) 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 Concerning thrombocytopenia. Plan: continue IV antibiotics with a repeat CT scan tomorrow to determine if intervention needed Time Spent With Patient Time with patient: 30 to 49 minutes with 50% spent counseling/coordinating care
--- NOTE | 2022-10-04 07:45 | PM.PN.1 ---
Subjective Subjective Date Patient Seen: 10/04/22 Time Patient Seen: 07:45 Interval history: Patient seen and evaluated this morning said he did well last night. Feeling a little hungry. Intermittent twinges of lower abdominal pain. Has some bowel movements. He says limited. He is had limited oral intake. Overall feeling well. Vital signs have been stable blood pressure and temperature normal. Exam Vital Signs (past 8 hours): Oxygen Delivery Method Room Air Oxygen Flow Rate 0 Narrative Exam Narrative: Gen.: Alert good historian resting comfortably in bed HEENT: Pupils equal round and reactive or mucosa is moist Cardio: S1-S2 systolic murmur present Respiratory: Normal respiratory effort lungs are clear decrease breath sounds at the bases Abdomen: Soft mild tenderness especially in the right lower quadrant area with some guarding Extremities: Warm dry perfused Objective Labs 10/04/22 06:03 10/04/22 06:03 Labs: Laboratory Results - last 24 hr 10/04/22 10/04/22 10/04/22 06:03 06:03 06:03 WBC 12.5 H RBC 4.13 L Hgb 13.5 Hct 40.7 L MCV 98.7 MCH 32.8 MCHC 33.2 RDW 13.5 Plt Count 115 L Neut % (Auto) 84.4 H Lymph % (Auto) 5.7 L [place] % (Auto) 8.4 Eos % (Auto) 1.3 L Baso % (Auto) 0.2 Neut # (Auto) 00203 H Lymph # (Auto) 700 L [place] # (Auto) 1000 H Eos # (Auto) 200 Baso # (Auto) 0 PT 16.6 H INR 1.4 H Sodium 136 L Potassium 3.7 Chloride 107 Carbon Dioxide 21 L BUN 21 H Creatinine 1.02 Estimated GFR > 60 BUN/Creatinine Ratio 20.6 Glucose 97 Calcium 8.1 L Total Bilirubin 1.0 AST 24 ALT 20 Alkaline Phosphatase 55 Total Protein 6.3 Albumin 3.0 L Globulin 3.3 Albumin/Globulin Ratio 0.9 L [facility] Medical History BPH (benign prostatic hyperplasia) Essential hypertension (07/14/04) Mixed hyperlipidemia (12/15/02) 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 Appreciate surgical care. Patient continuing IV antibiotics at this point abdominal pain is stable. White blood cell count is improved he is afebrile vital signs are stable. Watching for abscess formation and collection. Continue care per General surgery Bioprosthetic aortic valve.? Patient underwent aortic valve bioprosthetic replacement.? Patient has a heart murmur.? Blood pressure heart rate stable today Coronary artery disease status post bypass surgery.? Chronic and stable.? Patient is on beta-bob and atorvastatin.? No signs of angina Hypertension patient will be continued on his antihypertensives lisinopril and BPH.? Patient has a known history of BPH he is on Flomax and finasteride.? Will continue these medications during hospital stay and monitor his ins and outs and signs and symptoms concerning for urinary obstruction. Gastroesophageal reflux.? Patient with a history of gastric ulcer with perforation due to aspirin use. Chronic patient on pantoprazole we will continue his medication during this hospital stay DVT prophylaxis with SCDs. Lovenox was held yesterday because of platelets were below 100. Disposition and plan stop IV fluids ambulate with physical therapy surgical management per General surgery
--- NOTE | 2022-10-04 07:50 | PC.NURSE ---
Addendum entered by Kassandra Torres R.N. 10/04/22 13:19: New IV started to L.forearm. Patients ivf infusing and he is tolerating new iv well. Original Note: Assess- Patient is alert and oriented x4, he denies pain. LS are clear, patient denies pain and his bowel tones are hypoactive. Visiting with his son now.
[2022-10-04 08:00] VITALS: BP 141/71; PULSE 71; RESP 17; TEMP 36.8; O2SAT 95
[2022-10-04] MEDS: FLUCONAZOLE 200 MG/100 ML PIGGYBACK 100 MG IV (08:00)
[2022-10-04] MEDS: METOPROLOL ER 25 MG TABLET PO (08:01)
[2022-10-04] MEDS: PANTOPRAZOLE DR 40 MG TABLET PO (08:01)
[2022-10-04] MEDS: FINASTERIDE 5 MG TABLET PO (08:01)
[2022-10-04] MEDS: ACETAMINOPHEN 325 MG TABLET 650 MG PO ×4 (08:06→21:02)
--- NOTE | 2022-10-04 15:16 | PT.IIE ---
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 States walked [place] every day Activities of Daily Living and IADL's independent Social History Household Members spouse Living Arrangements House Number of Floors (Floors) One Floor Number of Stairs To Enter/Railing? 1 stair, railing Home Environment Standard Height Toilet,Tub/ Shower M2 PT-IP Current Condition Start: 10/04/22 15:09 Freq: NEEDED Status: Active Protocol: Document 10/04/22 15:09 SAK (Rec: 10/04/22 15:16 SAK [id number]) Physical Therapy Current Condition Current Condition Evaluation Date 10/04/22 Treatment Diagnosis appendicitis, weakness Onset Date 10/02/22 M3 PT-IP Subjective Start: 10/04/22 15:09 Freq: NEEDED Status: Active Protocol: Document 10/04/22 15:09 SAK (Rec: 10/04/22 15:16 [facility] [id number]) Subjective Physical Therapy Visit Type Type Initial Evaluation Visit Start Time 14:40 Visit Stop Time 15:04 Total Visit Minutes 24 Number of CLINICAL MANAGER HOME CARE Visits 0 Physical Therapy Visit Comments Patient Comments Patient reports occasional sharp pains, feels a bit weak, otherwise ok. Therapy Pain Assessment Pain When Pain Assessed At Rest Pain Present Pain Present Pain Reported Location right groin Intensity 4 Scale Used Numeric (0 - 10) Description Aching,Sharp Pain Behaviors Guarding,Wincing M4 PT-IP Mobility and Gait Start: 10/04/22 15:09 Freq: NEEDED Status: Active Protocol: Document 10/04/22 15:09 [facility] (Rec: 10/04/22 15:16 [facility] [id number]) PT-Bed Mobility Assessment Rolling Level of Assist Standby Assistance Supine to Sit Supine to Sit Independent Sit to Supine Sit to Supine Independent Scooting Scooting to Edge of Bed Independent PT-Transfer Assessment Sit to and From Stand Sit to and from Stand Standby Assistance Equipment Transfer Assistive Device Gait Belt,Front Wheeled Walker Orthotic/Prosthetic Devices or Brace: No Transfers Transfer Technique ambulation Transfer Ability Level of Assist Standby Assistance Gait Assessment Gait Gait Assistance Required: Standby Assistance Distance (Feet) 200 Able to Maintain Weight Bearing Status Yes During Gait Assistive Devices Assistive Device None,Front Wheeled Walker Orthotic/Prosthetic Devices or Brace: No Gait Deviations General Gait Pattern Decreased Stride Length, Decreased Feet Clearance Factors Limiting Gait Function Factors Limiting Gait Function Decreased Activity Tolerance Comments Gait Comments Patient walked one loop around nurse's station with FWW, then trial without device with SBA, no LOB, patient reporting feels slower, otherwise ok Stair Climbing Assessment Evaluation Level of Assist On Stairs Standby Assistance Devices Stair Climbing Assistive Devices Right Railing Technique/Endurance Stair Climbing Direction Ascend and Descend Stair Climbing Technique Step Over Step Number of Steps Climbed 3 Query Text: Stair Climbing Set # Repetitions (reps) 1 PT-Balance Assessment Sitting Balance and Reactions Static Sitting Balance Ability Normal Dynamic Sitting Balance Ability Normal Standing Balance and Reactions Static Standing Balance Ability Good Dynamic Standing Balance Ability Fair M5 PT-IP Objective Assessments Start: 10/04/22 15:09 Freq: NEEDED Status: Active Protocol: Document 10/04/22 15:09 [facility] (Rec: 10/04/22 15:16 [facility] [id number]) Gross Range of Motion Upper Extremity ROM Assessment Within Functional Limits Lower Extremity ROM Assessment Within Functional Limits Strength Upper Extremity Strength Assessment Within Functional Limits Lower Extremity Strength Assessment Within Functional Limits Sensation Assessment Sensation Gross Sensation WNL Muscle Tone Muscle Tone WNL Yes M7 PT-IP Assessment and Plan Start: 10/04/22 15:09 Freq: NEEDED Status: Active Protocol: Document 10/04/22 15:09 [facility] (Rec: 10/04/22 15:16 [facility] [id number]) PT Summary Assessment and Plan Potential Rehabilitation Potential Good Status of Condition at Evaluation Evolving Summary Impairments Activity Tolerance Assessment Summary Patient seen for PT eval due to concerns about mobility safety. He was SBA for bed mobility and transfers, CG to SBA for gait first with FWW then with no device with no LOB. Patient would benefit from nursing supervision with OOB activity but has no PT needs at this time. Frequency of Treatment Frequency Of Treatment Discharge Treatment Plan Other Recommendations and Next Treatment Discharge home with assistance Focus of /familyh Discharge Recommendations PT Discharge Recommendations Home with Assistance
--- NOTE | 2022-10-04 15:17 | PT-IP ANOTE ---
Recommend nursing supervision with mobility for safety but patient has no PT needs at this time. D/C from PT.
[2022-10-04 19:00] VITALS: O2SAT 95
[2022-10-04] MEDS: TAMSULOSIN 0.4 MG CAPSULE 0.8 MG PO (21:02)
[2022-10-04 21:10] VITALS: BP 160/74; PULSE 67; RESP 18; TEMP 36.3; O2SAT 97
[2022-10-05] MEDS: PIPERACILLIN/TAZO 3.375 GM in SODIUM CHLORIDE 0.9% 100 ML IV ×3 (01:11→18:06)
[2022-10-05] MEDS: ACETAMINOPHEN 325 MG TABLET 650 MG PO (01:16)
[2022-10-05 07:00] VITALS: O2SAT 95
--- NOTE | 2022-10-05 07:34 | DI.CT.S_ITS ---
PROCEDURE: CT ABDOMEN PELVIS W CON INDICATIONS: ruptured appy TECHNIQUE: After the administration of intravenous contrast, axial sections acquired from the lung bases to the pubic symphysis. Coronal and sagittal reformats were performed. For radiation dose reduction, the following was used: automated exposure control, adjustment of mA and/or kV according to patient size. COMPARISON: [facility], CT, CT ABDOMEN PELVIS W CON, 10/02/2022, 14:02. FINDINGS: Image quality: Excellent. Lung bases: Small right pleural effusion. Moderate hiatal hernia. Heart: No significant findings. ABDOMEN: Liver: Unremarkable. Gallbladder: Cholelithiasis without wall thickening or adjacent fat stranding to suggest acute cholecystitis. Biliary ducts: Unremarkable. Pancreas: Unremarkable. Spleen: Unremarkable. Adrenal Glands: Unremarkable. Kidneys and Ureters: No complex renal cystic lesions which require follow-up. Stomach and Bowel: Perforated appendix. Wall thickening of the sigmoid colon, presumably reactive. Peritoneum: The deep pelvic fluid collection now has rim enhancement, containing appendicoliths, measuring 4.0 x 5.8 x 4.8 cm (series 2, image 64 and series 4, image 41). There is an additional rim enhancing collection in the right inguinal canal measuring 2.7 x 3.5 cm (2/81). Gas and fluid adjacent to the appendix, without rim enhancement. Ventral Wall: No hernias. Abdominal Nodes: No retroperitoneal or mesenteric adenopathy by size criteria. Vessels: Aorta and inferior vena cava are normal in size. PELVIS: Pelvic Organs: Unremarkable. Bladder: Unremarkable. Pelvic Nodes: No enlarged lymph nodes. Miscellaneous: Right inguinal hernia containing fat and fluid. Bones: Convex left scoliosis. IMPRESSION: Sequela of perforated appendicitis. The collection in the deep pelvis demonstrates rim enhancement on today's examination, concerning for developing abscess. This measures 4.0 x 5.8 x 4.8 cm, and would be difficult to access using CT guided techniques. Additional rim enhancing collection in the right inguinal canal measuring 3.5 x 2.7 cm, also probably an abscess. Dictated by: Costa Hill M.D. on 10/05/2022 at 8:39 Approved by: Costa Hill M.D. on 10/05/2022 at 8:46
[2022-10-05 08:00] VITALS: BP 156/71; PULSE 69; RESP 17; TEMP 36.3; O2SAT 95
[2022-10-05] MEDS: FLUCONAZOLE 200 MG/100 ML PIGGYBACK 100 MG IV (08:58)
[2022-10-05 09:01] VITALS: BP 156/71; PULSE 69
[2022-10-05] MEDS: PANTOPRAZOLE DR 40 MG TABLET PO (09:01)
[2022-10-05] MEDS: METOPROLOL ER 25 MG TABLET PO (09:01)
[2022-10-05] MEDS: FINASTERIDE 5 MG TABLET PO (09:01)
--- NOTE | 2022-10-05 10:09 | PM.PN.1 ---
Subjective Subjective Date Patient Seen: 10/05/22 Time Patient Seen: 10:10 Interval history: Patient seen this morning. Family at bedside. Patient states a little bit of pain. Did well last night no confusion vital signs are stable. Afebrile. Tolerating diet a little bit. On IV antibiotics. Repeat CT scan done this morning. Good bowel movement said a little bit of constipation yesterday which increase some abdominal pain but better. Exam Vital Signs (past 8 hours): - 10/05/22 08:00 10/05/22 09:01 Temperature 97.3 F L Pulse Rate 69 69 Respiratory Rate 17 Blood Pressure 156/71 H 156/71 H Pulse Oximetry 95 Oxygen Flow Rate 0 Oxygen Delivery Method Room Air Oxygen Flow Rate 0 Narrative Exam Narrative: Gen.: Alert and oriented x3 HEENT: Pupils equal round reactive or mucosa is moist. Cardio: S1-S2 regular rate and rhythm systolic murmur murmurs appreciated. Respiratory: Lungs are clear to auscultation no wheezes or crackles normal respiratory effort. Abdomen: Soft tenderness and right lower quadrant Extremities: Full range of motion no appreciable weakness no cyanosis or edema. Objective Imaging CT scan - abdomen: Radiologist's impression: Today's CT scan results Sequela of perforated appendicitis.? The collection in the deep pelvis demonstrates rim enhancement on today's examination, concerning for developing abscess.? This measures 4.0 x 5.8 x 4.8 cm, and would be difficult to access using CT guided techniques. ? Additional rim enhancing collection in the right inguinal canal measuring 3.5 x 2.7 cm, also probably an abscess.? ? 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 Appreciate surgical care.? Patient continuing IV antibiotics at this point abdominal pain is stable.? CT scan revisited today shows abscess formation. Will require general surgery patient family aware surgical case scheduled Bioprosthetic aortic valve.? Patient underwent aortic valve bioprosthetic replacement.? Patient has a heart murmur.? Blood pressure heart rate stable today Coronary artery disease status post bypass surgery.? Chronic and stable.? Patient is on beta-bob and atorvastatin.? No signs of angina Hypertension patient will be continued on his antihypertensives lisinopril and beta-bob BPH.? Patient has a known history of BPH he is on Flomax and finasteride.? No signs of urinary obstruction Gastroesophageal reflux.? Patient with a history of gastric ulcer with perforation due to aspirin use.? 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 Hovering around 100. DVT prophylaxis with SCDs.? Disposition and plan repeat CT scan shows abscess formation surgery tomorrow
--- NOTE | 2022-10-05 10:35 | PM.PN.1 ---
Subjective Subjective Date Patient Seen: 10/05/22 Time Patient Seen: 10:35 Interval history: Clinically improved, afebrile. However, CT scan shows pelvic fluid matured into abscess >4cm in size, inguinal canal has small abscess, phelgmon still there. 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 RIH w/o complication Plan: Lap appy with open RIH repair w/o mesh and drainage of abscess. COVID-19 COVID-19 status: Negative Time Spent With Patient Time with patient: less than 30 minutes
[2022-10-05 19:00] VITALS: O2SAT 96
[2022-10-05] MEDS: TAMSULOSIN 0.4 MG CAPSULE 0.8 MG PO (20:07)
[2022-10-05 23:09] VITALS: BP 139/60; PULSE 66; RESP 17; TEMP 36.3; O2SAT 96
[2022-10-06] VITALS (19 sets, daily range): BP systolic 144–167; BP diastolic 69–84; PULSE 61–79; RESP 11–17; TEMP 36.2–36.9; O2SAT 91–965
--- NOTE | 2022-10-06 | PATH_ITS ---
[facility] Accession Number: [id number] No. of containers..01 Tissue . 01 Material submitted: . appendix - APPENDIX . 01 Clinical history: . SENT BY DR SUSI MILLS . 01 Diagnosis: Vermiform Appendix, Appendectomy: Acute transmural appendicitis and periappendicitis. Fibrous obliteration of the lumen. Negative for neoplasia. MRV 10/10/2022 1415 Local . 01 Electronically signed: . Obdulia Edmondson MD, Pathologist NPI- [id number] . 01 Gross description: . The specimen is received in formalin labeled with the patient's name, , and appendix, and consists of a fragmented presumed appendix aggregating to 4.9 x 2.1 x 0.9 cm. The serosa is kamara and irregular, and due to the fragmentation, perforations cannot be identified. A staple line consistent with presumed margins is removed and inked blue. Sectioning reveals a patent pinpoint lumen with no fecaliths identified and kamara mi that average 0.2 cm with no distinct lesions identified. Imaging Center Manager sections to include the surgical margin, one half of the presumed bisected distal tip and cross-sections are submitted in cassette A1. ([id number]) /CHRISTIANO 10/09/2022 1007 Local . 01 Pathologist provided ICD-10: K35.80 . 01 CPT . 614138 Specimen Comment: A courtesy copy of this report has been sent to [phone] Performed at: 01 [facility] [address] [place] [address], [place], [place] [id number] MD Michelet Araujo MD Phone: [phone]
[2022-10-06] MEDS: PIPERACILLIN/TAZO 3.375 GM in SODIUM CHLORIDE 0.9% 100 ML IV ×3 (00:12→17:19)
[2022-10-06] MEDS: FLUCONAZOLE 200 MG/100 ML PIGGYBACK 100 MG IV (08:42)
--- NOTE | 2022-10-06 08:49 | PM.PREOP ---
Pre-operative Note COVID-19 COVID-19 status: Negative Criteria for continued procedure: Expected advancement of disease process Interval Note History & Physical reviewed/Exam performed by Physician: Yes Changes to H&P: Yes H&P completed within 30 days and has changed as indicated here:: development of abscess in right groin and plevis. Plan is primary RIH repair, lap appy with abscess drainage.
[2022-10-06] MEDS: LACTATED RINGERS 1,000 ML 42 ML IV ×2 (09:50→11:49)
--- NOTE | 2022-10-06 10:33 | SUR.OPER ---
Supine on padded OR bed, head on pillow, arms padded and tucked at sides, legs uncrossed, safety belt at thigh, tape over blanket over lower legs .
[2022-10-06] MEDS: BUPIVACAINE 0.25% (PF) 30 ML, EPINEPHrine 0.15 MG INJ (10:57)
--- NOTE | 2022-10-06 11:28 | CM.DPNOTE ---
DCP Note: Patient to surgery this morning. Claudia Bah RN/DCP
[2022-10-06] MEDS: HYDROMORPHONE 2 MG INJ IV (12:41)
[2022-10-06] MEDS: ONDANSETRON 4 MG/2 ML INJ IV (12:41)
--- NOTE | 2022-10-06 12:47 | SUR.PHASEI ---
Patient remains stable post-op; vss; abdomen with dressings clean, dry and intact. Mostly sleeping but arousable with any verbal stimuli; following all commands. Lungs CTA. Normal sinus rhythm with no ectopy noted on ekg monitor.
--- NOTE | 2022-10-06 12:54 | PM.OP.1 ---
Operative Date/Time/Diagnoses Date of procedure: 10/06/22 Time of procedure: 12:54 Pre-op diagnosis: Ruptured appendicitis, pelvic abscess, right inguinal hernia with associated fluid collection in the groin Post-op diagnosis: same Procedure & Clinicians Procedure: Laparoscopic appendectomy with drainage of pelvic abscess. Open right inguinal hernia repair without mesh with drainage of groin seroma Same procedure as scheduled: Yes Indications: Ruptured appendicitis. Right inguinal hernia. Pelvic abscess. Right inguinal fluid collection Surgeon: Obdulia Celaya Yes if Unassisted: Yes Anesthesia Type: General Operative Notes Findings: Ruptured appendicitis. However the appendix appeared predominantly intact down into the area of the pelvic abscess. Pelvic abscess was easily drained. Fluid collection of the right groin was associated with hernia sac and appeared to be not infected. Direct right inguinal hernia repaired primarily without mesh Closure Type: primary Specimen(s): other (Appendix) Estimated Blood Loss (mL): 30 Blood products transfused: none Procedure in detail: Preop diagnosis: Ruptured appendicitis, pelvic abscess, right groin fluid collection, right inguinal hernia Postop diagnosis: Same Operative procedure: Laparoscopic appendectomy with drainage of pelvic abscess. Open right inguinal hernia with removal of seroma associated hernia sac. Surgeon: Pilar Trinidad MD Anesthetic: General with ET tube intubation along with local Findings. Ruptured appendicitis. Direct inguinal hernia. Pelvic abscess. Right groin fluid collection consisted of noninfected seroma within the existing hernia sac Procedure: Patient placed in a supine position. Prepped and draped in sterile fashion to expose his abdomen. Infraumbilical port site placed using open technique a 12 mm port. Insufflation began all other ports were placed under direct vision including a 5 mm port in the left lateral abdomen and a 5 mm port in the suprapubic area. Appendix was identified as being true midline diving down into the pelvis where the associated abscess and fecalith resided. I feel that the fecalith was likely still contained within the appendix which was extracted from the pelvis. We had a healthy appendix base to accept a PRAVEENA stapling device for amputation. Appendix was placed into an Endo-Catch bag and pulled through the infraumbilical port site intact. Hemostasis achieved with electrocautery. There was oozing in the pelvis that was treated with a single Surgicel. No drain placed due to a clear return under irrigation at the end abscess drainage. Fascia was closed with the infraumbilical port site and I moved to the right inguinal hernia using an open technique. Skin was sharply incised with 10 blade along electrocautery. External oblique was sharply incised and pulled laterally for exposure. The palpable lump that was the fluid collection in the groin was aspirated via a small puncture wound prior to manipulation of the cord structures. With much difficulty I was able to identify the cord structures and pulled them separately with a Gee drain for protection. Hernia remains slightly incarcerated with omentum only and this was reduced to include the seroma within the hernia sac. This left a large indirect hernia behaving as a direct hernia given the inflammatory process. With final reduction of the hernia into the abdomen I did a closure of the floor of the inguinal canal using external oblique musculature to the inguinal ligament with interrupted 2-0 Ethibond. I then released the cord structures and return them into the scrotal position prior to closure of the external oblique fascia using a running 3-0 Vicryl. Lucille's was closed with interrupted 3-0 Vicryl after irrigation of the subcutaneous tissue. Skin was closed a running 4-0 Vicryl. Steri-Strips and sterile dressings were placed on closure including the 5 mm port sites and the umbilical port site where the skin had been closed with interrupted 4-0 Vicryl. Patient was awakened, extubated, taken to recovery room in stable condition. Needle, instrument, sponge counts were correct. Blood loss: 30 mL Specimen: Appendix Complications: none Post-operative Condition: stable Disposition: PACU
[2022-10-06] MEDS: ACETAMINOPHEN 325 MG TABLET 650 MG PO ×2 (13:33→21:33)
[2022-10-06] MEDS: METOPROLOL ER 25 MG TABLET PO (13:57)
[2022-10-06] MEDS: FINASTERIDE 5 MG TABLET PO (14:01)
[2022-10-06] MEDS: PANTOPRAZOLE DR 40 MG TABLET PO (14:02)
[2022-10-06 15:10] LABS: Acinetobacter calcoa-baumannii Not Detected (Not Detect); Bacteroides fragilis DETECTED (Not Detect); Candida albicans Not Detected (Not Detect); Candida auris Not Detected (Not Detect); Candida glabrata Not Detected (Not Detect); Candida krusei Not Detected (Not Detect); Candida parapsilosis Not Detected (Not Detect); Candida tropicalis Not Detected (Not Detect); Cryptococcus neoformans/gatti Not Detected (Not Detect); Enterobacter cloacae complex Not Detected (Not Detect); Enterobacterales Not Detected (Not Detect); Enterococcus faecalis Not Detected (Not Detect); Enterococcus faecium Not Detected (Not Detect); Haemophilus influenzae Not Detected (Not Detect); Klebsiella aerogenes Not Detected (Not Detect); Listeria monocytogenes Not Detected (Not Detect); Neisseria meningitidis Not Detected (Not Detect); Proteus species Not Detected (Not Detect); Pseudomonas aeruginosa Not Detected (Not Detect); Salmonella species Not Detected (Not Detect); Serratia marcescens Not Detected (Not Detect); Staphylococcus epidermidis Not Detected (Not Detect); Staphylococcus lugdunensis Not Detected (Not Detect); Staphylococcus species Not Detected (Not Detect); Stenotrophomonas maltophilia Not Detected (Not Detect); Streptococcus agalactiae (Gr B Not Detected (Not Detect); Streptococcus pneumonia Not Detected (Not Detect); Streptococcus pyogenes (Gr A) Not Detected (Not Detect); Streptococcus species Not Detected (Not Detect)
--- NOTE | 2022-10-06 19:01 | PM.PN.1 ---
Subjective Subjective Date Patient Seen: 10/06/22 Time Patient Seen: 19:01 Interval history: Patient is status post surgery today. Feeling better. No other changes. Actually feeling better today than he was yesterday. Less cough. Less pain. No other changes. Exam Vital Signs (past 8 hours): - 10/06/22 12:23 10/06/22 12:28 10/06/22 12:33 Temperature 98.4 F Pulse Rate 62 61 63 Respiratory Rate 11 L 11 L 11 L Blood Pressure 147/69 H 146/70 H 156/72 H Pulse Oximetry 94 94 94 Oxygen Delivery Method Nasal Cannula Nasal Cannula Nasal Cannula Oxygen Flow Rate 3 3 3 10/06/22 12:38 10/06/22 12:43 10/06/22 12:48 Temperature Pulse Rate 63 63 63 Respiratory Rate 11 L 11 L 11 L Blood Pressure 154/82 H 162/73 H 156/74 H Pulse Oximetry 965 H 91 92 Oxygen Delivery Method Nasal Cannula Nasal Cannula Nasal Cannula Oxygen Flow Rate 3 3 3 10/06/22 12:53 10/06/22 13:18 10/06/22 13:57 Temperature 97.4 F L Pulse Rate 62 67 79 Respiratory Rate 11 L 16 Blood Pressure 155/71 H 158/76 H 167/69 H Pulse Oximetry 92 93 Oxygen Delivery Method Nasal Cannula Oxygen Flow Rate 3 0 10/06/22 14:00 10/06/22 14:30 10/06/22 15:30 Temperature Pulse Rate 70 65 75 Respiratory Rate 17 17 17 Blood Pressure 153/79 H 166/73 H 150/76 H Pulse Oximetry 94 95 97 Oxygen Delivery Method Oxygen Flow Rate 2.5 2.5 2.5 10/06/22 16:30 Temperature Pulse Rate 75 Respiratory Rate 17 Blood Pressure 165/71 H Pulse Oximetry 98 Oxygen Delivery Method Oxygen Flow Rate 2.5 Oxygen Delivery Method Nasal Cannula Oxygen Flow Rate 2.5 Narrative Exam Narrative: Lungs are clear heart regular rate and rhythm with unchanged murmur abdomen is flat soft minimal tenderness Objective Labs 10/04/22 06:03 10/04/22 06:03 Labs: Laboratory Results - last 24 hr 10/06/22 17:55 A.calcoaceticus-baumannii cmplx PCR Not detected Bacteroides fragilis Detected H Jumana albicans (PCR) Not detected Jumana auris (PCR) Not detected C. glabrata (PCR) Not detected C. krusei (PCR) Not detected C. parapsilosis (PCR) Not detected C. tropicalis (PCR) Not detected C. neoform/gattii (PCR) Not detected Enterobacterales (PCR) Not detected E. cloacae complex PCR Not detected Enterococc faecalis PCR Not detected Enterococc faecium PCR Not detected E. coli (PCR) Not detected H. influenzae (PCR) Not detected Klebsiella aerogenes (PCR) Not detected Klebsiella oxytoca PCR Not detected Klebsiella pneumoniae Not detected List. monocytogenes PCR Not detected N. meningitidis (PCR) Not detected Proteus species (PCR) Not detected Salmonella spp. (PCR) Not detected Serratia marcescens PCR Not detected Staphylococcus sp PCR Not detected Staph aureus (PCR) Not detected Staph epidermidis (PCR) Not detected Staph lugdunensis PCR Not detected S. maltophilia (PCR) Not detected Streptococcus sp PCR Not detected Group A Strep (PCR) Not detected Strep agalactiae (PCR) Not detected Strep pneumoniae (PCR) Not detected P. 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 Patient is on antihypertensive mildly hypertensive right now. Will see what happens over the next 24 hours. And follow. . Coronary artery disease. Appears to have done well through surgery watch closely. Continue usual meds. Appendicitis with perforation and phlegmon. With hernia. Repaired today. On antibiotics. Cultures were positive but she is should be on good antibiotics for this coverage. No change at this time. Will follow. Bacteremia. Patient with no evidence of sepsis at this time. Should be good antibiotics and will follow. History of aortic valve repair. Seems to be stable on antibiotics. Will follow. BPH. Stable. Continue Flomax and finasteride. Gastrointestinal reflux. Patient has a history of aspirin ulcer patient on pantoprazole. Will continue. Thrombocytopenia. Stable at this time. Will follow with check tomorrow. DVT prophylaxis on SCDs. Disposition will be a few days for recovery status post surgery. Appreciate surgery's input. And help.
[2022-10-06] MEDS: TAMSULOSIN 0.4 MG CAPSULE 0.8 MG PO (21:33)
[2022-10-07] VITALS (11 sets, daily range): BP systolic 141–179; BP diastolic 67–83; PULSE 61–68; RESP 17–21; TEMP 36.1–37.2; O2SAT 94–99
[2022-10-07] MEDS: PIPERACILLIN/TAZO 3.375 GM in SODIUM CHLORIDE 0.9% 100 ML IV (01:44)
[2022-10-07] MEDS: METOPROLOL ER 25 MG TABLET PO (07:57)
[2022-10-07] MEDS: PANTOPRAZOLE DR 40 MG TABLET PO (07:57)
[2022-10-07] MEDS: FLUCONAZOLE 200 MG/100 ML PIGGYBACK 100 MG IV (07:57)
[2022-10-07] MEDS: FINASTERIDE 5 MG TABLET PO (07:57)
[2022-10-07] MEDS: ACETAMINOPHEN 325 MG TABLET 650 MG PO ×3 (08:04→21:26)
[2022-10-07 09:14] LABS: Add Manual Diff / Slide Review NO; Basophils Absolute Auto 100 /uL (0-100); Basophils Percent Auto 0.9 % (0-2); Eosinophils Absolute Auto 0 /uL (0-450); Eosinophils Percent Auto 0.1 % (2-4); Hematocrit 42.1 % (41-53); Hemoglobin 14.4 g/dL (13.5-17.5); Lymphocytes Absolute Auto 700 /uL (1100-4500); Lymphocytes Percent Auto 7.3 % (25-40); Mean Corpuscular HGB Conc 34.2 % (30-36); Mean Corpuscular Hemoglobin 33.1 PG (26-34); Mean Corpuscular Volume 96.7 fL (80-100); Monocytes Absolute Auto 600 /uL (0-900); Neutrophils Absolute Auto 8300 /uL (1500-7000); Neutrophils Percent Auto 85.7 % (50-75); Platelet Count 181 X10^3/uL (150-400); Red Blood Cell Count 4.35 X10^6/uL (4.5-5.9); Red Cell Distribution Width 13.8 % (11.6-14.8); White Blood Cell Count 9.7 X10^3/uL (4.5-11.0)
[2022-10-07 09:28] LABS: Alanine Aminotransferase 48 IU/L (<50); Albumin 3.4 g/dL (3.5-5.0); Alkaline Phosphatase 60 U/L (38-126); Aspartate Aminotransferase 38 IU/L (17-59); BUN Creatinine Ratio 20.3 (6-22); Bilirubin Total 0.7 mg/dL (0.2-1.3); Blood Urea Nitrogen 16 mg/dL (9-20); Calcium 8.5 mg/dL (8.4-10.2); Carbon Dioxide 26 mmol/L (22-32); Chloride 105 mmol/L (98-107); Estimated Glomerular Filt Rate > 60 mL/min (>60); Globulin 3.5 g/dL (1.7-4.1); Glucose 165 mg/dL (80-110); HEMOLYSIS < 15 (0-50); Potassium 3.8 mmol/L (3.4-5.1); Sodium 138 mmol/L (137-145); Total Protein 6.9 g/dL (6.3-8.2)
--- NOTE | 2022-10-07 09:51 | P.PN_ITS ---
Subjective Subjective Date Patient Seen: 10/07/22 Time Patient Seen: 09:51 Interval history: s/p Lap appy with open RIH repair w/o mesh. Exam Vital Signs (past 8 hours): - 10/07/22 03:15 Temperature 97.0 F L Pulse Rate 62 Respiratory Rate 17 Blood Pressure 162/79 H Pulse Oximetry 96 Oxygen Flow Rate 0 Oxygen Delivery Method Room Air Oxygen Flow Rate 0 Narrative Exam Narrative: Mild scrotal swelling, no complications. Objective Labs 10/07/22 09:00 10/07/22 09:00 Labs: Laboratory Results - last 24 hr 10/06/22 10/07/22 10/07/22 17:55 09:00 09:00 WBC 9.7 RBC 4.35 L Hgb 14.4 Hct 42.1 MCV 96.7 MCH 33.1 MCHC 34.2 RDW 13.8 Plt Count 181 Neut % (Auto) 85.7 H Lymph % (Auto) 7.3 L [place] % (Auto) 6.0 Eos % (Auto) 0.1 L Baso % (Auto) 0.9 Neut # (Auto) 8300 H Lymph # (Auto) 700 L [place] # (Auto) 600 Eos # (Auto) 0 Baso # (Auto) 100 Sodium 138 Potassium 3.8 Chloride 105 Carbon Dioxide 26 BUN 16 Creatinine 0.79 Estimated GFR > 60 BUN/Creatinine Ratio 20.3 Glucose 165 H Calcium 8.5 Total Bilirubin 0.7 AST 38 ALT 48 Alkaline Phosphatase 60 Total Protein 6.9 Albumin 3.4 L Globulin 3.5 Albumin/Globulin Ratio 1.0 A.calcoaceticus-baumannii cmplx PCR Not detected Bacteroides fragilis Detected H Jumana albicans (PCR) Not detected Jumana auris (PCR) Not detected C. glabrata (PCR) Not detected C. krusei (PCR) Not detected C. parapsilosis (PCR) Not detected C. tropicalis (PCR) Not detected C. neoform/gattii (PCR) Not detected Enterobacterales (PCR) Not detected E. cloacae complex PCR Not detected Enterococc faecalis PCR Not detected Enterococc faecium PCR Not detected E. coli (PCR) Not detected H. influenzae (PCR) Not detected Klebsiella aerogenes (PCR) Not detected Klebsiella oxytoca PCR Not detected Klebsiella pneumoniae Not detected List. monocytogenes PCR Not detected N. meningitidis (PCR) Not detected Proteus species (PCR) Not detected Salmonella spp. (PCR) Not detected Serratia marcescens PCR Not detected Staphylococcus sp PCR Not detected Staph aureus (PCR) Not detected Staph epidermidis (PCR) Not detected Staph lugdunensis PCR Not detected S. maltophilia (PCR) Not detected Streptococcus sp PCR Not detected Group A Strep (PCR) Not detected Strep agalactiae (PCR) Not detected Strep pneumoniae (PCR) Not detected P. 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) Surgical History History of aortic valve replacement (04/07/15) Family History Father Heart disease Mother Heart disease Social History marital status: household members: spouse Smoking Status: Former smoker alcohol intake: never substance use type: does not use Assessment & Plan Post-op Postoperative Procedures: Procedures Operation Date: 10/06/22 12:30 Actual Procedure Side Surgeon p Laparoscopic Appendectomy Obdulia Trinidad MD s Hernia Repair Right Obdulia Trinidad MD Postoperative status: doing well Postoperative status narrative: Another 7 days of po antibiotics. Likely discharge tomorrow with lifting restrictions for 2 weeks of 15 lbs. Postoperative plan narrative: General diet lifting restriction 7 days Augmentin F/u surgery 2-4 weeks. Time Spent With Patient Time with patient: 15-24 minutes
--- NOTE | 2022-10-07 10:04 | PC.NURSE ---
Addendum entered by Heather Palacios R.N. 10/07/22 19:50: b/p's 167/69 message to Kiersten Trinidad and Norbert re: b/p's. patients face is flushed red, and after review of his chart and speaking w/ his .. lisinopril was reinstated and dose given. he usually takes it in the evening. patient also coughed up a quarter size goober very green w/ blood tinged. tolerating RA, sats 99%. no BM today, passing gas. bloating is improved slightly due to his ambulating hallways several times this shift. Original Note: 0900: patient feeling much better today. tolerated dangling at bedside for breakfast. amb w/ FWW w/ steady gait to bathroom, voided 300cc clear yellow urine. reports tolerable pain, accepted 650mg tylenol as ordered. ice pack placed, and currently sitting up in chair in room visiting w/ family. IV abx d/c'd, will start PO abx. tentative d/c for tomorrow.
--- NOTE | 2022-10-07 13:38 | P.PN_ITS ---
Subjective Subjective Date Patient Seen: 10/07/22 Time Patient Seen: 13:38 Interval history: Patient seen in follow-up of bacteremia and hypertension. Feeling well. No chest pain no shortness of breath. Abdominal pain is improved. No nausea or vomiting today. No other changes. Exam Vital Signs (past 8 hours): - 10/07/22 08:00 10/07/22 10:01 10/07/22 10:03 Temperature 97.7 F Pulse Rate 64 Respiratory Rate 18 Blood Pressure 179/83 H 141/68 H 141/68 H Pulse Oximetry 96 Oxygen Delivery Method Oxygen Flow Rate 0 10/07/22 07:00 10/07/22 07:00 10/07/22 12:32 Temperature 98.3 F Pulse Rate 61 Respiratory Rate 18 Blood Pressure 147/67 H Pulse Oximetry 96 97 Oxygen Delivery Method Room Air Room Air Oxygen Flow Rate 0 Oxygen Delivery Method Room Air Oxygen Flow Rate 0 Narrative Exam Narrative: Alert elderly male in no acute distress Lungs are clear heart is unchanged murmur abdomen positive bowel sounds Objective Labs 10/07/22 09:00 10/07/22 09:00 Labs: Laboratory Results - last 24 hr 10/06/22 10/07/22 10/07/22 17:55 09:00 09:00 WBC 9.7 RBC 4.35 L Hgb 14.4 Hct 42.1 MCV 96.7 MCH 33.1 MCHC 34.2 RDW 13.8 Plt Count 181 Neut % (Auto) 85.7 H Lymph % (Auto) 7.3 L [place] % (Auto) 6.0 Eos % (Auto) 0.1 L Baso % (Auto) 0.9 Neut # (Auto) 8300 H Lymph # (Auto) 700 L [place] # (Auto) 600 Eos # (Auto) 0 Baso # (Auto) 100 Sodium 138 Potassium 3.8 Chloride 105 Carbon Dioxide 26 BUN 16 Creatinine 0.79 Estimated GFR > 60 BUN/Creatinine Ratio 20.3 Glucose 165 H Calcium 8.5 Total Bilirubin 0.7 AST 38 ALT 48 Alkaline Phosphatase 60 Total Protein 6.9 Albumin 3.4 L Globulin 3.5 Albumin/Globulin Ratio 1.0 A.calcoaceticus-baumannii cmplx PCR Not detected Bacteroides fragilis Detected H Jumana albicans (PCR) Not detected Jumana auris (PCR) Not detected C. glabrata (PCR) Not detected C. krusei (PCR) Not detected C. parapsilosis (PCR) Not detected C. tropicalis (PCR) Not detected C. neoform/gattii (PCR) Not detected Enterobacterales (PCR) Not detected E. cloacae complex PCR Not detected Enterococc faecalis PCR Not detected Enterococc faecium PCR Not detected E. coli (PCR) Not detected H. influenzae (PCR) Not detected Klebsiella aerogenes (PCR) Not detected Klebsiella oxytoca PCR Not detected Klebsiella pneumoniae Not detected List. monocytogenes PCR Not detected N. meningitidis (PCR) Not detected Proteus species (PCR) Not detected Salmonella spp. (PCR) Not detected Serratia marcescens PCR Not detected Staphylococcus sp PCR Not detected Staph aureus (PCR) Not detected Staph epidermidis (PCR) Not detected Staph lugdunensis PCR Not detected S. maltophilia (PCR) Not detected Streptococcus sp PCR Not detected Group A Strep (PCR) Not detected Strep agalactiae (PCR) Not detected Strep pneumoniae (PCR) Not detected P. 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 Much improved today. Trending in the right direction. No change in medication at this time. Will follow-up tomorrow. Coronary artery disease. Stable. Doing well. No change Appendicitis with perforation and phlegmon status post surgery day 1 doing extremely well. As per surgery but appears as if will be okay to go home tomorrow. Bacteremia. On appropriate antibiotics. History of aortic valve repair. No issue at this time. Continue antibiotics. Has risk. BPH stable doing well. Reflux. No symptoms. Continue meds DVT prophylaxis on SCDs. Disposition. As per surgery but appears as if home tomorrow.
[2022-10-07] MEDS: AMOXICILLIN/CLAV 500/125 MG 1 TAB PO ×2 (15:11→21:26)
[2022-10-07] MEDS: lisinopriL 20 MG TABLET PO (18:26)
[2022-10-07] MEDS: ATORVASTATIN 20 MG TABLET TUBE (21:26)
[2022-10-07] MEDS: SODIUM CHLORIDE 0.9% FLUSH 10 ML IV (21:27)
[2022-10-07] MEDS: TAMSULOSIN 0.4 MG CAPSULE 0.8 MG PO (21:27)
[2022-10-08] MEDS: ACETAMINOPHEN 325 MG TABLET 650 MG PO ×2 (03:16→08:48)
[2022-10-08 03:48] VITALS: BP 166/81; PULSE 60; RESP 20; TEMP 36.4; O2SAT 96
[2022-10-08 07:00] VITALS: O2SAT 95
--- NOTE | 2022-10-08 07:35 | P.DS_ITS ---
History of Present Illness History of Present Illness Chief complaint: sent by hernia problems Narrative: 87-year-old with known cardiac history with transcatheter aortic valve implantation coronary artery disease with four-vessel CABG in 2010 hypertension hyperlipidemia BPH. Patient has a known history of an inguinal hernia which causes intermittent pain. Four days ago patient states began having abdominal pain and thought maybe his inguinal hernia was causing problems. He tried to reduce it at home she says he was successful doing. The pain has continued since that time. Pain is located in his right lower quadrant lower abdominal area. Some left lower quadrant pain. Pain is described as moderate to severe. Patient lives at home with his and was concerned so she called in and patient was evaluated in the emergency department for possible strangulation incarceration of hernia. Says he has been eating and drinking well. He is had no fevers or chills. He is had no vomiting or diarrhea has had bowel movements and passing gas. He denies any significant temperature. In the emergency department patient had laboratory tests and diagnostic imaging patient's laboratory tests of note showed an elevated white blood cell count. Slightly elevated INR at 1.5 mild hyponatremia normal liver function tests normal liver protein urinalysis showed no signs of infection and COVID test was negative. CT scan of his abdomen and pelvis showed enlarged appearance of at least partially perforated appendix with markedly inflamed changes in the right lower quadrant parents is turning screening for appendicitis and possible perforation. General surgery was consulted in the emergency department who recommended the patient admitted to the hospital with IV antibiotics and the medicine team was consulted for medical care. Patient is resting comfortably in bed at the time of this dictation and family at the bedside. Discharge Providers Provider Date of admission: 10/02/22 18:12 Discharge Date: 10/08/22 Primary care physician: Gavin Jiang MD Consults: 10/02/22 17:12 Consult to General Surgery Stat Comment: Consulting Provider: Obdulia Trinidad Reason for consultation: Perforated appendicitis Has provider been notified: Yes 10/04/22 07:50 Consult to Physical Therapy Evaluate & Treat Comment: Physician Instructions: Evaluate and Treat Discharge provider: Gavin Jiang MD Summary Hospital Course Hospital Course: Patient admitted with an appendicitis with perforation phlegmon and then abscess patient admitted to the hospital with perforated appendicitis patient was admitt ed to the hospital patient was admitted to the hospital with perforated appendicitis phlegmon and then abscess. Patient was taken to the operative suite had removal of appendix washout of abscess and repair of hernia. Patient's postoperative course was uncomplicated. Patient was admitted the hosp ital with IV antibiotics and time to see if resolution of appendicitis and phlegmon. Ultimately abscess was found and patient had surgical correction. Postoperatively patient had good pain control a little bit of constipation and was tolerating diet. His blood pressure was a little bit high. During his hospital stay initial aerobic blood cultures were negative anaerobic blood culture grew out Bacteroides. Patient has a history of coronary artery disease with bypass surgery in bowels prosthetic aortic valve. During the hospital stay he was maintained on his beta-bob statin medication had no acute coronary artery events and was stable. Patient with gastroesophageal reflux with previous history of perforated ulcer due to NSAID use. Patient remained on his proton pump inhibitor during his hospital stay. Patient has had some thrombocytopenia in and outside the hospital. During his hospital stay SCDs were provided to the patient. Initially placed on Lovenox but his platelets drop below 100. BPH. Patient continue on his Flomax and Proscar. No significant urinary symptoms during hospital stay. Patient had difficulty to control blood pressure. His blood pressure medication were adjusted including his beta-bob and lisinopril. Discharge per General surgery. Patient's discharge plan will be antibiotics for 7 days no heavy lifting for 2 weeks be placed on a stool softener and Tylenol for pain control Exam Vital Signs (past 8 hours): - 10/07/22 23:50 10/08/22 03:48 Temperature 98.5 F 97.5 F L Pulse Rate 67 60 Respiratory Rate 19 20 Blood Pressure 154/78 H 166/81 H Pulse Oximetry 94 96 Oxygen Flow Rate 0 0 Oxygen Delivery Method Room Air Oxygen Flow Rate 0 Objective Labs 10/07/22 09:00 10/07/22 09:00 Labs: Laboratory Results - last 24 hr 10/07/22 10/07/22 09:00 09:00 WBC 9.7 RBC 4.35 L Hgb 14.4 Hct 42.1 MCV 96.7 MCH 33.1 MCHC 34.2 RDW 13.8 Plt Count 181 Neut % (Auto) 85.7 H Lymph % (Auto) 7.3 L [place] % (Auto) 6.0 Eos % (Auto) 0.1 L Baso % (Auto) 0.9 Neut # (Auto) 8300 H Lymph # (Auto) 700 L [place] # (Auto) 600 Eos # (Auto) 0 Baso # (Auto) 100 Sodium 138 Potassium 3.8 Chloride 105 Carbon Dioxide 26 BUN 16 Creatinine 0.79 Estimated GFR > 60 BUN/Creatinine Ratio 20.3 Glucose 165 H Calcium 8.5 Total Bilirubin 0.7 AST 38 ALT 48 Alkaline Phosphatase 60 Total Protein 6.9 Albumin 3.4 L Globulin 3.5 Albumin/Globulin Ratio 1.0 PFSH Medical History BPH (benign prostatic hyperplasia) Essential hypertension (07/14/04) Mixed hyperlipidemia (12/15/02) 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) Surgical History History of aortic valve replacement (04/07/15) Family History Father Heart disease Mother Heart disease Social History marital status: household members: spouse Smoking Status: Former smoker alcohol intake: never substance use type: does not use Discharge Plan Discharge Plan Patient Disposition: Home Provider Discharge Comment: f/u jaycob in 7 10 days f/u surgery 7-10 days Discharge orders & Medications Prescriptions: New amoxicillin-pot clavulanate [Augmentin] 500-125 mg Tablet 1 tab PO TID Qty: 21 0RF docusate sodium [Colace] 100 mg capsule 100 mg PO DAILY Qty: 21 0RF Continued cholecalciferol (vitamin D3) 50 mcg (2,000 unit) capsule 50 mcg PO DAILY cyanocobalamin (vitamin B-12) 1,000 mcg capsule 1,000 mcg PO DAILY atorvastatin 20 mg tablet See Rx Instructions .ROUTE .COMPLEX Qty: 90 3RF Dose Instruction: TAKE ONE TABLET BY MOUTH ONE TIME DAILY Rx Instructions: TAKE ONE TABLET BY MOUTH ONE TIME TWO TIMES A WEEK (SATURDAY, SATURDAY). lisinopril 40 mg tablet See Rx Instructions PO DAILY Qty: 90 3RF Dose Instruction: TAKE 1 TABLET BY MOUTH DAILY Rx Instructions: TAKE 1 TABLET BY MOUTH DAILY orally daily; metoprolol succinate 25 mg tablet extended release 24 hr 25 mg PO DAILY Qty: 90 3RF pantoprazole 40 mg tablet,delayed release (DR/EC) See Rx Instructions .ROUTE .COMPLEX Qty: 30 5RF Dose Instruction: TAKE ONE TABLET BY MOUTH ONE TIME DAILY Rx Instructions: TAKE ONE TABLET BY MOUTH ONE TIME DAILY tamsulosin [Flomax] 0.4 mg capsule 0.8 mg PO BEDTIME Qty: 0 finasteride 5 mg tablet 5 mg PO DAILY Patient Comments: TAKE ONE TABLET BY MOUTH ONE TIME DAILY Follow up/Referrals: Gavin Jiang MD [Primary Care Provider] - Visit Report/Discharge Packet Stand Alone Forms: Patient Portal/API, Stroke Signs & Symptoms Discharge Data Primary Care Provider: Gavin Jiang
[2022-10-08 08:00] VITALS: BP 162/79; PULSE 70; RESP 18; TEMP 36.6; O2SAT 95
--- NOTE | 2022-10-08 08:09 | CM.DPC ---
DCP Discharge Home Per MD, pt is medically stable to discharge home today and no identified barriers to discharge and to f/u with PCP and Surgeon within 10 days of discharge. Family bedside and in agreement and no further needs at this time. Plan: Patient to d/c home today via family POV and outpt f/u and no further SW needs at this time. WILBERT Walton
[2022-10-08 08:37] VITALS: BP 160/70
[2022-10-08] MEDS: FINASTERIDE 5 MG TABLET PO (08:37)
[2022-10-08] MEDS: lisinopriL 20 MG TABLET PO (08:37)
[2022-10-08] MEDS: METOPROLOL ER 25 MG TABLET PO (08:37)
[2022-10-08] MEDS: AMOXICILLIN/CLAV 500/125 MG 1 TAB PO (08:38)
[2022-10-08] MEDS: PANTOPRAZOLE DR 40 MG TABLET PO (08:38)
[2022-10-08] MEDS: SODIUM CHLORIDE 0.9% FLUSH 10 ML IV (09:00)
--- NOTE | 2022-10-08 09:02 | PC.NURSE ---
Addendum entered by Heather Palacios R.N. 10/08/22 11:30: b/p improved, ~120/60 after lisinopril given. dressings to ABD surgical sites changed, steri strips reapplied per Dr Conn instructions, all sites redressed w/ fresh bandages. dc instructions reviewed w/ Crystal and patient. pharmacist arrived to offer additional teaching on new meds that were ordered. left floor at 1130. see dc. Original Note: 0800: bp remains > 160 / 70's Dr Jiang on the floor, ordered Lisinopril to be given this morning. d/c orders are being written, and Dr Trinidad will be here around 1030 to see patient.
--- NOTE | 2022-10-08 10:32 | PM.PNPO.1 ---
Subjective Subjective Date Patient Seen: 10/08/22 Time Patient Seen: 10:32 Interval history: Ready to go home Exam Vital Signs (past 8 hours): - 10/08/22 03:48 10/08/22 08:37 10/08/22 07:00 Temperature 97.5 F L Pulse Rate 60 Respiratory Rate 20 Blood Pressure 166/81 H 160/70 H Pulse Oximetry 96 95 Oxygen Delivery Method Room Air Oxygen Flow Rate 0 10/08/22 08:00 Temperature 97.8 F Pulse Rate 70 Respiratory Rate 18 Blood Pressure 162/79 H Pulse Oximetry 95 Oxygen Delivery Method Oxygen Flow Rate 0 Oxygen Delivery Method Room Air Oxygen Flow Rate 0 Narrative Exam Narrative: Minimal swelling, no infection. 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) Surgical History History of aortic valve replacement (04/07/15) Family History Father Heart disease Mother Heart disease Social History marital status: household members: spouse Smoking Status: Former smoker alcohol intake: never substance use type: does not use Assessment & Plan Post-op Postoperative Procedures: Procedures Operation Date: 10/06/22 12:30 Actual Procedure Side Surgeon p Laparoscopic Appendectomy Obdulia Trinidad MD s Hernia Repair Right Obdulia Trinidad MD Postoperative status narrative: No complications Postoperative plan narrative: Home with lifting restriction and 2 weeks follow up Time Spent With Patient Time with patient: 15-24 minutes
[2022-10-08 10:40] VITALS: BP 126/80
--- NOTE | 2022-10-25 03:26 | PC.NURSE ---
SALOME washburn was admin at approx 0415 on 10/03/2022
== END 2022-10-08 11:20 | disposition home or self-care (01) | DRG 339 ==
LOC: ED 15:34 → AC 18:13
PROVIDERS: Family Medicine; Surgery; Admitting Provider Family Medicine; Emergency Provider Student in an Organized Health Care Education/Training Program; Family Provider Internal Medicine Interventional Cardiology; PCP Family Medicine; Referring Provider Student in an Organized Health Care Education/Training Program; Visit Provider Family Medicine
PROC: 0DTJ4ZZ Resection of Appendix, Percutaneous Endoscopic Approach (ICD-10-PCS; CPT 44970; principal; 2022-10-06 12:30)
PROC: 0DTJ4ZZ Resection of Appendix, Percutaneous Endoscopic Approach (ICD-10-PCS; 2022-10-06 12:30)
DX: K35.33 Acute appendicitis with perforation, localized peritonitis, and gangrene, with abscess (principal); K40.30 Unilateral inguinal hernia, with obstruction, without gangrene, not specified as recurrent; I25.10 Atherosclerotic heart disease of native coronary artery without angina pectoris; I10 Essential (primary) hypertension; N40.0 Benign prostatic hyperplasia without lower urinary tract symptoms; K21.9 Gastro-esophageal reflux disease without esophagitis; D69.6 Thrombocytopenia, unspecified; E78.2 Mixed hyperlipidemia; Z95.2 Presence of prosthetic heart valve; Z95.1 Presence of aortocoronary bypass graft; Z20.822 Contact with and (suspected) exposure to COVID-19; Z87.891 Personal history of nicotine dependence
CPT/HCPCS: 36415; 44979; 49507; 74177; 80053; 81003; 81015; 83605; 85025; 85610; 85730; 87040; 87154; 87635; 96365; 97161; 99222; 99223; 99232; 99284; C9803; J0171; J0330; J1100; J1170; J1450; J1650; J2405; J2543; J2704; J3010; Q9967

== ENCOUNTER 2024-08-31 14:16 | Emergency (ER) | payer OTHER, SELFPAY ==
[2022-10-18 12:14] VITALS: BMI 28.3
[2024-08-31] VITALS (11 sets, daily range): BP systolic 166–200; BP diastolic 58–90; PULSE 66–87; RESP 18–44; TEMP 36.7; O2SAT 97–99; BMI 26.5
[2024-08-31 14:47] LABS: Add Manual Diff / Slide Review NO; Basophils Absolute Auto 100 /uL (0-100); Basophils Percent Auto 1.1 % (0-2); Eosinophils Absolute Auto 300 /uL (0-450); Eosinophils Percent Auto 4.4 % (2-4); Hematocrit 46.8 % (41-53); Hemoglobin 15.7 g/dL (13.5-17.5); Lymphocytes Absolute Auto 1800 /uL (1100-4500); Lymphocytes Percent Auto 28.9 % (25-40); Mean Corpuscular HGB Conc 33.5 % (30-36); Mean Corpuscular Hemoglobin 32.3 PG (26-34); Mean Corpuscular Volume 96.4 fL (80-100); Monocytes Absolute Auto 600 /uL (0-900); Monocytes Percent Auto 9.5 % (3-14); Neutrophils Absolute Auto 3500 /uL (1500-7000); Neutrophils Percent Auto 56.1 % (50-75); Platelet Count 138 X10^3/uL (150-400); Red Blood Cell Count 4.86 X10^6/uL (4.5-5.9); Red Cell Distribution Width 13.7 % (11.6-14.8); White Blood Cell Count 6.3 X10^3/uL (4.5-11.0)
--- NOTE | 2024-08-31 14:48 | EKG_ITS ---
[place] [id number] [place] [id number] Test Date: 2024-08-31 Pat Name: Venkat Hernandez Department: [facility] Room: Gender: Male Color Paste Mixer: DREW : 1935 Requested By: Order Number: [id number] Reading MD: Rebel Lucero Measurements Intervals [place] Rate: 66 P: 51 CO: 216 QRS: -37 QRSD: 102 T: 22 QT: 398 QTc: 417 Interpretive Statements Sinus rhythm with 1st degree AV block Left axis deviation Moderate voltage criteria for LVH, may be normal variant ( R in aVL , Francis product ) Electronically Signed On 08-31-2024 18:39:56 PST by Rebel Lucero
[2024-08-31] MEDS: PANTOPRAZOLE 40 MG VIAL 80 MG IV (14:50)
[2024-08-31 14:53] LABS: INR 1.1 (0.9-1.3); Prothrombin Time 12.7 SECONDS (9.4-12.5)
[2024-08-31 14:56] LABS: PTT Partial Thromboplastin Tim 37 SECONDS (25.1-36.5)
[2024-08-31 14:57] LABS: Alanine Aminotransferase 22 IU/L (<50); Albumin 4.4 g/dL (3.5-5.0); Albumin Globulin Ratio 1.4 (1.0-2.8); Alkaline Phosphatase 91 U/L (38-126); Aspartate Aminotransferase 30 IU/L (17-59); Bilirubin Total 0.8 mg/dL (0.2-1.3); Blood Urea Nitrogen 19 mg/dL (9-20); Calcium 9.2 mg/dL (8.4-10.2); Carbon Dioxide 24 mmol/L (22-32); Chloride 107 mmol/L (98-107); Estimated Glomerular Filt Rate > 60 mL/min (>60); Globulin 3.2 g/dL (1.7-4.1); Glucose 95 mg/dL (80-110); HEMOLYSIS < 15 (0-50); Potassium 4.1 mmol/L (3.4-5.1); Sodium 140 mmol/L (137-145); Total Protein 7.6 g/dL (6.3-8.2)
--- NOTE | 2024-08-31 15:00 | ED.DENTAL ---
HPI - Dental/Oral General Chief complaint: Upper Respiratory Symptoms Stated complaint: spitting out blood Time Seen by Provider: 08/31/24 14:43 History of Present Illness HPI Narrative: Patient brought here by son for intermittent off and on bleeding in the mouth. No recent dental surgery. No dizziness. Not vomiting blood. Not coughing up blood. No epistaxis. Patient is not on any blood thinners. Patient in no distress. Patient denies any pain in the chest or abdomen. No oral pain. Patient has gum bleeding from tooth 5. Teeth map: 1. Related Data Home Medications Medication Instructions Recorded Confirmed cholecalciferol (vitamin D3) 50 50 mcg PO DAILY 09/20/22 08/06/24 mcg (2,000 unit) capsule cyanocobalamin (vitamin B-12) 1,000 mcg PO DAILY 09/20/22 08/06/24 1,000 mcg capsule Previous Rx's Medication Instructions Recorded atorvastatin 20 mg tablet 20 mg PO DAILY #90 tabs 07/02/24 finasteride 5 mg tablet 5 mg PO DAILY #90 tabs 07/02/24 lisinopril 40 mg tablet 40 mg PO DAILY #90 tabs 07/02/24 metoprolol succinate 25 mg 25 mg PO DAILY #90 tabs 07/02/24 tablet,extended release 24 hr pantoprazole 40 mg tablet,delayed 40 mg PO DAILY #90 tabs 07/02/24 release tamsulosin 0.4 mg capsule (Flomax) 0.8 mg (2 x 0.4 mg) PO BEDTIME 07/02/24 #180 caps cephalexin 500 mg capsule 500 mg PO BID #6 caps 08/31/24 Allergies Allergy/AdvReac Type Severity Reaction Status Date / Time No Known Drug Allergies Allergy Verified 07/02/24 15:59 Review of Systems Review of Systems Narrative: GENERAL: Negative chills, fatigue, malaise, fever, sweats. HEENT: Negative sinus pain, ear pain, sore throat, positive dental problem RESPIRATORY: Negative dyspnea, cough CARDIOVASCULAR: Negative chest pain, palpitations GASTROINTESTINAL: Negative vomiting, nausea, abdominal pain : Negative dysuria, frequency, hematuria MUSCULOSKELETAL: Negative muscle or bony pain SKIN: Negative rash, skin lesions NEUROLOGIC: Negative weakness, numbness ROS Unobtainable: All systems reviewed & are unremarkable except as noted in HPI and below Patient History Medical History (Updated 08/31/24 @ 17:06 by Roni Reyes MD) Appendicitis with perforation BPH (benign prostatic hyperplasia) 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 EYES: Pupils equal round ENT: Mucous membranes moist., bleeding at the gum at tooth 5. There is dental decay/dental caries. No palpable abscess. Tooth is nontender NECK: Trachea midline. CARDIOVASCULAR: Regular rate and rhythm RESPIRATORY: Clear to auscultation. Breath sounds equal bilaterally. No wheezes, rales, or rhonchi. GASTROINTESTINAL: Abdomen soft, non-tender EXTREMITIES: No gross deformities. BACK: No flank tenderness. NEURO: AOx4. Clear speech SKIN: Warm and dry PSYCH: Not anxious, is cooperative Initial Vital Signs Initial Vital Signs: Vital Signs Temperature 98.0 F 08/31/24 14:19 Pulse Rate 75 08/31/24 14:19 Respiratory Rate 18 08/31/24 14:19 Blood Pressure 200/88 H 08/31/24 14:19 Pulse Oximetry 99 08/31/24 14:19 Oxygen Delivery Method Room Air 08/31/24 14:19 Course Orders Ordered: Discontinued Medications Cephalexin HCl (Cephalexin 250 Mg Capsule) 500 mg PO NOW ONE Stop: 08/31/24 17:05 Last Admin: 08/31/24 17:10 Dose: 500 mg Documented By: Hydralazine HCl (Hydralazine 20 Mg/Ml Vial) 10 mg IV NOW ONE Stop: 08/31/24 15:05 Last Admin: 08/31/24 15:12 Dose: 10 mg Documented By: Ondansetron HCl (Ondansetron 4 Mg/2 Ml Inj) 4 mg IV NOW PRN PRN Reason: Nausea And Vomiting Ondansetron HCl (Ondansetron 4 Mg Odt) 4 mg SL NOW PRN PRN Reason: Nausea And Vomiting Pantoprazole Sodium (Pantoprazole 40 Mg Vial) 80 mg IV NOW ONE Stop: 08/31/24 14:37 Last Admin: 08/31/24 14:50 Dose: 80 mg Documented By: Sodium Chloride (Sodium Chloride 0.9% Flush) 50 ml IV NOW ONE Stop: 08/31/24 16:08 Last Admin: 08/31/24 16:28 Dose: 50 ml Documented By: PAT Vital Signs Vital signs: Vital Signs - 8 hr 08/31/24 14:19 08/31/24 14:28 08/31/24 14:29 Temperature 98.0 F Pulse Rate 75 Respiratory Rate 18 Blood Pressure 200/88 H 194/90 H Pulse Oximetry 99 97 Oxygen Delivery Method Room Air 08/31/24 14:29 08/31/24 14:30 08/31/24 14:30 Temperature Pulse Rate 68 69 Respiratory Rate Blood Pressure 183/84 H Pulse Oximetry 97 97 Oxygen Delivery Method 08/31/24 15:00 08/31/24 15:00 08/31/24 15:12 Temperature Pulse Rate 67 87 Respiratory Rate 18 Blood Pressure 169/77 H 166/78 H Pulse Oximetry 97 Oxygen Delivery Method 08/31/24 15:30 08/31/24 15:30 08/31/24 16:00 Temperature Pulse Rate 66 73 Respiratory Rate 44 H 22 Blood Pressure 176/82 H Pulse Oximetry 97 98 Oxygen Delivery Method 08/31/24 16:00 08/31/24 16:23 08/31/24 16:23 Temperature Pulse Rate 75 Respiratory Rate 37 H Blood Pressure 172/74 H 184/76 H Pulse Oximetry 97 Oxygen Delivery Method 08/31/24 16:25 08/31/24 16:30 08/31/24 16:30 Temperature Pulse Rate 76 77 Respiratory Rate 27 H Blood Pressure 184/76 H 169/58 H Pulse Oximetry 98 Oxygen Delivery Method MDM - Dental/Oral Lab Data 08/31/24 14:30 08/31/24 14:30 Labs: Lab Results 03/03/25 Range/Units 14:30 WBC 6.3 (4.5-11.0) X10^3/uL RBC 4.86 (4.5-5.9) X10^6/uL Hgb 15.7 (13.5-17.5) g/dL Hct 46.8 (41-53) % MCV 96.4 (80-100) fL MCH 32.3 (26-34) PG MCHC 33.5 (30-36) % RDW 13.7 (11.6-14.8) % Plt Count 138 L (150-400) X10^3/uL Neut % (Auto) 56.1 (50-75) % Lymph % (Auto) 28.9 (25-40) % Travis % (Auto) 9.5 (3-14) % Eos % (Auto) 4.4 H (2-4) % Baso % (Auto) 1.1 (0-2) % Neut # (Auto) 3500 (3052-0658) /uL Lymph # (Auto) 1800 (2500-7786) /uL Travis # (Auto) 600 (0-900) /uL Eos # (Auto) 300 (0-450) /uL Baso # (Auto) 100 (0-100) /uL PT 12.7 H (9.4-12.5) SECONDS INR 1.1 (0.9-1.3) APTT 37 H (25.1-36.5) SECONDS Sodium 140 (137-145) mmol/L Potassium 4.1 (3.4-5.1) mmol/L Chloride 107 (98-107) mmol/L Carbon Dioxide 24 (22-32) mmol/L BUN 19 (9-20) mg/dL Creatinine 1.12 (0.66-1.25) mg/dL Estimated GFR > 60 (>60) mL/min BUN/Creatinine Ratio 17.0 (6-22) Glucose 95 (80-110) mg/dL Calcium 9.2 (8.4-10.2) mg/dL Total Bilirubin 0.8 (0.2-1.3) mg/dL AST 30 (17-59) IU/L ALT 22 (<50) IU/L Alkaline Phosphatase 91 (38-126) U/L Total Protein 7.6 (6.3-8.2) g/dL Albumin 4.4 (3.5-5.0) g/dL Globulin 3.2 (1.7-4.1) g/dL Albumin/Globulin Ratio 1.4 (1.0-2.8) Blood Type O Positive Antibody Screen Negative Urine Dip Bedside Urine Glucose Negative Bedside Urine Bilirubin - Negative Bedside Urine Ketone - Negative Urine Specific [place] 1.010 Bedside Urine Occult Blood + Bedside Urine pH 7.0 Bedside Urine Protein +/- 15 Bedside Urine Urobilinogen - Negative Bedside Urine Nitrite + Positive Bedside Urine Leukocytes +++ [address] face: Radiologist's Impression: [address] [address] [address] Scan Report Signed Patient: Venkat Hernandez MR#: [id number] : 1935 Acct:[id number] Age/Sex: 89 / M Date of Service: 08/31/24 Loc: ED Accession Number: [id number] Procedure: CT facial bones w con Ordering Provider: Roni Reyes MD PROCEDURE: CT FACIAL BONES W CON INDICATIONS: Right upper teeth swelling/bleeding TECHNIQUE: After the administration of intravenous contrast, 2.5 mm axial sections acquired from the mid-neck to the frontal sinuses, with coronal and sagittal reformats. For radiation dose reduction, the following was used: automated exposure control, adjustment of mA and/or kV according to patient size. COMPARISON: None. FINDINGS: Image quality: Excellent. Soft tissues: No edema, masses, or fluid collections. No enlarged lymph nodes. Vascular: Visualized vascular structures appear patent throughout. Bony vascular foramina and canals appear normal. Bones: Facial bones appear intact, without fractures, erosions, or destruction. Visualized portions of the skull base and auditory canals also appear normal. Sinuses: Paranasal sinuses are aerated without fluid levels, mucosal thickening, or mucoceles. Mastoid air cells are aerated. IMPRESSION: No significant abnormality is seen within the area of concern. However, evaluation is limited due to dental hardware artifact. Dictated by: Norman Lim M.D. on 08/31/2024 at 15:52 Approved by: Norman Lim M.D. on 08/31/2024 at 15:55 [facility] Narrative Medical decision making narrative: Patient brought here by son for intermittent off and on bleeding in the mouth. No recent dental surgery. No dizziness. Not vomiting blood. Not coughing up blood. No epistaxis. Patient is not on any blood thinners. Patient in no distress. Patient denies any pain in the chest or abdomen. No oral pain. Patient has gum bleeding from tooth 5 After history and exam, CBC CMP INR PT PTT CT face, viscous lidocaine with epinephrine, hydralazine MDM Medical records reviewed: No recent visit for this complaint Differential considered: Includes but not limited to dental abscess dental injury Lab Test results independently reviewed as above. Pertinent findings: WBC 6.3 hemoglobin 15.7 INR 1.1 sodium 140 potassium 4.1 GFR greater than 60 BUN 19 creatinine 1.12 Independently reviewed EKG sinus rhythm rate 66 Imaging studies independently reviewed: CT face no acute finding Consultations: None indicated at this time Treatments: Viscous lidocaine with epinephrine to the tooth Re-evaluations: 4:50 p.m.. Removal of the gauze from the tooth. There is no no bleeding. Blood pressure has improved 169/58. Reviewed with patient and son dietary changes need to be soft and liquid diets at this time. Son will call dentist office tomorrow for removal of the tooth. Return precautions reviewed. They desire discharge home. Reviewed exam findings and laboratory studies and imaging studies with patient and son. Discussion: Appropriate discharge home. Return precautions reviewed with patient and son. Nontoxic at discharge. Exam and laboratory studies imaging studies are reassuring. The tooth bleeding stopped with pressure and this is lidocaine/epinephrine Diagnosis: Dental bleed Discharge Plan Departure Patient Disposition: Home Clinical Impression: Dental caries, Acute UTI Instructions: DI for Urinary Tract Infection (UTI), DI for Tooth Decay Activity Restrictions/Additional Instructions: Please call dental offices as planned tomorrow to have your tooth removed. It is eroding and likely causing some bleeding. Please use gauze pressure to the tooth to help stop bleeding. Please do continue taking your blood pressure medication. Please keep well hydrated. Continue with soft foods, no hard crunchy foods or foods that require a lot of chewing. This may trigger bleeding again. You are being treated incidentally for urinary tract infection with antibiotic Keflex Prescriptions: New cephalexin 500 mg capsule 500 mg PO BID Qty: 6 0RF No Action cholecalciferol (vitamin D3) 50 mcg (2,000 unit) capsule 50 mcg PO DAILY cyanocobalamin (vitamin B-12) 1,000 mcg capsule 1,000 mcg PO DAILY tamsulosin [Flomax] 0.4 mg capsule 0.8 mg PO BEDTIME Qty: 180 3RF finasteride 5 mg tablet 5 mg PO DAILY Qty: 90 3RF atorvastatin 20 mg tablet 20 mg PO DAILY Qty: 90 3RF Rx Instructions: Take one tablet once daily for high cholesterol lisinopril 40 mg tablet 40 mg PO DAILY Qty: 90 3RF metoprolol succinate 25 mg tablet extended release 24 hr 25 mg PO DAILY Qty: 90 3RF pantoprazole 40 mg tablet,delayed release (DR/EC) 40 mg PO DAILY Qty: 90 3RF Referrals: Gavin Jiang MD [Primary Care Provider] - Stand Alone Forms: Patient Portal/API/Survey
--- NOTE | 2024-08-31 15:04 | DI.CT.S_ITS ---
PROCEDURE: CT FACIAL BONES W CON INDICATIONS: Right upper teeth swelling/bleeding TECHNIQUE: After the administration of intravenous contrast, 2.5 mm axial sections acquired from the mid-neck to the frontal sinuses, with coronal and sagittal reformats. For radiation dose reduction, the following was used: automated exposure control, adjustment of mA and/or kV according to patient size. COMPARISON: None. FINDINGS: Image quality: Excellent. Soft tissues: No edema, masses, or fluid collections. No enlarged lymph nodes. Vascular: Visualized vascular structures appear patent throughout. Bony vascular foramina and canals appear normal. Bones: Facial bones appear intact, without fractures, erosions, or destruction. Visualized portions of the skull base and auditory canals also appear normal. Sinuses: Paranasal sinuses are aerated without fluid levels, mucosal thickening, or mucoceles. Mastoid air cells are aerated. IMPRESSION: No significant abnormality is seen within the area of concern. However, evaluation is limited due to dental hardware artifact. Dictated by: Norman Lim M.D. on 08/31/2024 at 15:52 Approved by: Norman Lim M.D. on 08/31/2024 at 15:55
[2024-08-31] MEDS: HYDRALAZINE 20 MG/ML VIAL 10 MG IV (15:12)
[2024-08-31] MEDS: SODIUM CHLORIDE 0.9% FLUSH 50 ML IV (16:28)
[2024-08-31] MEDS: cephALEXin 250 MG CAPSULE 500 MG PO (17:10)
== END 2024-08-31 17:19 | disposition home or self-care (01) ==
PROVIDERS: Emergency Provider Emergency Medicine; PCP Family Medicine
DX: K02.9 Dental caries, unspecified (principal); N39.0 Urinary tract infection, site not specified; I10 Essential (primary) hypertension; Z87.891 Personal history of nicotine dependence
CPT/HCPCS: 36415; 70487; 80053; 81003; 85025; 85610; 85730; 86850; 86900; 86901; 93005; 96374; 96375; 99284; J0360; J2470; Q9967

== ENCOUNTER → 2024-09-04 12:20 | Outpatient (CLI) | payer OTHER, SELFPAY ==
[2022-10-18 12:14] VITALS: BMI 28.3
--- NOTE | 2024-09-04 12:22 | DI.ECHO.S_ITS ---
[facility] : : [id number] : [place] [address] : : [id number] : : Phone: [phone] Echocardiogram Report + + :Name: CALDERON SULLIVAN Study Date: 09/04/2024 Height: 70 in : :[facility] ReadingLocation: Weight: 181 lb : : Gender: Male BSA: 2.0 m2 : :: 1935 Age: 89 yrs BP: 200/98 mmHg: :Reason For Study: F/U MURMUR : :Ordering Physician: VENTURA, : :GAVIN Performed By: Gavin Werner : :Referring: GAVIN WHITEHEAD : + + Interpretation Summary Technically difficulty study. Normal LV size and systolic function. LVEF is 65-70% Mildly dilated RV with preserved systolic function. Moderate LA dilation is noted. 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 Mean gradient is 18.7mmHg and likely represents normal function. No significant aortic regurgitation is noted despite BP of 200/98 at time of study. Other findings as below. TTE dated 08/03/2010 is too far dated for a relevent comparison. Procedure: A two-dimensional transthoracic echocardiogram with color flow and Doppler was performed. The study quality was technically difficult. Comparison is made with the echocardiogram of 08/03/2010. The patient was in normal sinus rhythm during the exam. Left Ventricle: The left ventricle is normal in size. Left ventricular wall thickness is mildly increased. The ejection fraction is estimated to be 65- 70%. There are no focal wall motion abnormalities. Diastolic parameters suggest probable normal left ventricular diastolic function and normal filling pressures. Right Ventricle: The right ventricle is mildly dilated. The right ventricular systolic function is normal. Atria: The left atrium is moderately dilated. Right atrial size is normal. Mitral Valve: There is mild mitral annular calcification. The mitral valve leaflets appear mildly thickened, but open well. There is mild mitral regurgitation. Aortic Valve: There is a bioprosthetic aortic valve. The peak aortic velocity is 3.04 m/sec. The aortic valve mean gradient is 18.7 mmHg. There is trace aortic regurgitation. Tricuspid Valve: The tricuspid valve leaflets are thin and pliable. No tricuspid regurgitation. Pulmonic Valve: The pulmonic valve is not well visualized. Great Vessels: The aortic root is not well visualized. The ascending aorta could not be visualized. The pulmonary is not well visualized. The inferior vena cava was not visualized. MMode/2D Measurements & Calculations LVIDd: 4.3 cm LVOT diam: 1.8 cm LVIDs: 2.7 cm FS: 37.7 % EPSS: 0.89 cm IVSd: 1.1 cm LVPWd: 1.2 cm LV gonzales. diameter/BSA (cm/m^2): 2.2 LV sys. diameter/BSA (cm/m^2): 1.4 LA A2 area: 25.7 cm2 RA long axis: 5.1 cm LA A4 area: 23.6 cm2 RA area: 15.2 cm2 LA length (vol): 6.6 cm RA vol: 38.3 ml LA vol: 78.2 ml RA : 19.2 ml/m2 LA vol index: 39.1 ml/m2 RVD1 (basal): 4.8 cm RVD2 (mid): 3.6 cm TAPSE: 1.9 cm Doppler Measurements & Calculations Ao V2 max: 303.6 cm/sec LVOT Max Reuben: 95.2 cm/sec Ao V2 mean: 202.8 cm/sec LV V1 max P.6 mmHg Ao max P.9 mmHg LV V1 VTI: 25.9 cm Ao mean P.7 mmHg KARTHIK(I,D): 0.94 cm2 Ao V2 VTI: 70.2 cm KARTHIK(V,D): 0.79 cm2 sev ratio: 0.37 KARTHIK indexed to BSA (cm^2/m^2): 0.47 MV E max reuben: 72.6 cm/sec SV(LVOT): 65.7 ml MV A max reuben: 73.7 cm/sec MV E/A: 0.98 Med Peak E' Rueben: 6.0 cm/sec E/E' med: 12.0 Lat Peak E' Reuben: 5.6 cm/sec E/E' lat: 12.9 E/e' average: 12.5 MV dec time: 0.27 sec Reading Physician:02:18 PM
== END ==
PROVIDERS: PCP Family Medicine; Referring Provider Family Medicine; Visit Provider Family Medicine
DX: I34.81 Nonrheumatic mitral (valve) annulus calcification (principal); I34.0 Nonrheumatic mitral (valve) insufficiency; R01.1 Cardiac murmur, unspecified; Z95.2 Presence of prosthetic heart valve; Z95.1 Presence of aortocoronary bypass graft
CPT/HCPCS: 93306